=== PATIENT | female | born 1960 | race Caucasian/White ===

== ENCOUNTER → 2021-04-08 01:08 | Outpatient (CLI) | payer OTHER, SELFPAY ==
[2021-04-08 23:33] LABS: SARS-CoV-2 RNA PCR Negative
== END ==
PROVIDERS: PCP Family Medicine; Visit Provider Internal Medicine Gastroenterology
DX: Z01.812 Encounter for preprocedural laboratory examination (principal); Z20.822 Contact with and (suspected) exposure to COVID-19
CPT/HCPCS: C9803; U0003; U0005

== ENCOUNTER 2021-04-11 02:35 | Day surgery (SDC) | payer OTHER, SELFPAY ==
[2021-03-30 12:44] VITALS: BMI 40.2
--- NOTE | 2021-04-08 17:30 | WPDANESEPP ---
Anes - Eval Pre Procedure Procedure: Operation Date: 04/11/21 11:00 Proposed Procedures p Esophagogastroduodenoscopy - Saleem Rojo MD Date/Time: 04/08/21 17:30 Pre Op Diagnosis: dysphagia Patient Data Age: 60 Gender: F Height: 1.57 m Weight: 99.8 kg Allergies Allergy/AdvReac Type Severity Reaction Status Date / Time codeine Allergy PRURITIS Verified 03/30/21 14:00 levofloxacin [From Levaquin] Allergy Swelling Verified 03/30/21 14:00 Home Medications Medication Instructions Recorded Confirmed Type acetaminophen-codeine 300 tablet PO BID PRN 03/30/21 03/30/21 History buspirone 10 mg PO BID 03/30/21 03/30/21 History cimetidine 400 mg PO BID 03/30/21 03/30/21 History ergocalciferol (vitamin D2) 1,250 mcg PO WEEKLY 03/30/21 03/30/21 History fluticasone propionate 50 mcg INTRANASAL DAILY PRN 03/30/21 03/30/21 History metoprolol succinate 100 mg PO HS 03/30/21 03/30/21 History nystatin 100,000 unit TOPICAL DAILY 03/30/21 03/30/21 History omeprazole 40 mg PO BID 03/30/21 03/30/21 History triamcinolone acetonide 0.1 applic TOPICAL DAILY 03/30/21 03/30/21 History venlafaxine 150 mg PO QAM 03/30/21 03/30/21 History Patient hx anesthesia problems: other (emotional after anesthesia) Family hx anesthesia problems: none PMFSH Past Medical History Medical History (Updated 04/08/21 @ 17:31 by Jomar Araya DO) Anxiety Depression Migraine Surgical History Surgical History (Updated 04/08/21 @ 17:31 by Jomar Araya DO) History of History of hysterectomy History of tonsillectomy History of tubal ligation Social History Social History Years smoked: 15 Smoking status: Former smoker Tobacco type: cigarettes Alcohol intake: never Drinks per week: 0 Substance use: never Substance use type: does not use Gender identity (if verbalized by the patient): Female Spiritual care concerns: No Exam Day of Procedure 04/08/21 17:30
--- NOTE | 2021-04-11 07:12 | PM.HPGS ---
History of Present Illness History of Present Illness Consent: Risks, benefits, and alternatives have been discussed and questions answered. Patient agrees to proceed with procedure. Chief complaint: dysphagia Narrative: Zenobia Nickerson is a 60 year old female With dysphagia. Review of Systems Review of Systems: All systems reviewed & are unremarkable except as noted in HPI and below PMFSH Past Medical History Medical History Anxiety Depression Migraine Surgical History Surgical History History of History of hysterectomy History of tonsillectomy History of tubal ligation Social History Social History Years smoked: 15 Smoking status: Former smoker Tobacco type: cigarettes Alcohol intake: never Drinks per week: 0 Substance use: never Substance use type: does not use Living arrangements: with family Gender identity (if verbalized by the patient): Female Spiritual care concerns: No Meds Home Medications and Allergies Home Medications Medication Instructions Recorded Confirmed Type acetaminophen-codeine 300 tablet PO BID PRN 03/30/21 03/30/21 History buspirone 10 mg PO BID 03/30/21 03/30/21 History cimetidine 400 mg PO BID 03/30/21 03/30/21 History ergocalciferol (vitamin D2) 1,250 mcg PO WEEKLY 03/30/21 03/30/21 History fluticasone propionate 50 mcg INTRANASAL DAILY PRN 03/30/21 03/30/21 History metoprolol succinate 100 mg PO HS 03/30/21 03/30/21 History nystatin 100,000 unit TOPICAL DAILY 03/30/21 03/30/21 History omeprazole 40 mg PO BID 03/30/21 03/30/21 History triamcinolone acetonide 0.1 applic TOPICAL DAILY 03/30/21 03/30/21 History venlafaxine 150 mg PO QAM 03/30/21 03/30/21 History Allergies Allergy/AdvReac Type Severity Reaction Status Date / Time codeine Allergy PRURITIS Verified 03/30/21 14:00 levofloxacin [From Levaquin] Allergy Swelling Verified 03/30/21 14:00 Exam Const: General: alert Orientation/consciousness: patient oriented x3 Resp: Auscultation: clear to auscultation bilaterally Cardio: Rhythm: regular rhythm GI: GI Palp: Yes Soft to palpation and No Tenderness to palpation present (GI) Neuro: General: patient oriented x3 Assessment and Plan Assessment and plan (1) Dysphagia: Code(s): R13.10 - Dysphagia, unspecified Status: Acute Assessment and Plan: EGD with possible biopsy or dilatation or cautery.
[2021-04-11 10:07] VITALS: BP 128/80; PULSE 64; RESP 16; TEMP 35.6; O2SAT 99; BMI 40.0
--- NOTE | 2021-04-11 10:09 | WPDANESEFPP ---
Anes - Eval Final PreProcedure Day of Procedure 04/11/21 10:09 Patient weight: morbidly obese Heart: regular rate and rhythm Lungs: clear to auscultation Airway: Mallampati scale class II Neurological: alert and oriented Last oral intake: >/= 8 hours ASA classification: III Emergent: no Anesthetic plan: proceed Anesthesia type and monitoring: general GIVS and standard monitoring Informed Consent: The patient's anesthetic plan and its attendant risks and benefits were discussed with the patient/family/POA. Questions were solicited and answers provided to the satisfaction of the patient/family/POA.
[2021-04-11] MEDS: LACTATED RINGERS 1,000 ML 150 ML IV CONT (10:23)
[2021-04-11] MEDS: BENZOCAINE (*SP) 60 ML SPRAY CAN (HURRICAINE) 1 SPRAY MUCOUS MEM (10:31)
[2021-04-11 10:45] VITALS: BP 117/59; PULSE 70; RESP 18; O2SAT 99
[2021-04-11 10:55] VITALS: BP 108/78; PULSE 59; RESP 20; O2SAT 100
[2021-04-11 11:05] VITALS: BP 123/72; PULSE 58; RESP 20; O2SAT 100
== END 2021-04-11 11:20 | disposition home or self-care (01) ==
PROVIDERS: PCP Family Medicine; Visit Provider Internal Medicine Gastroenterology
PROC: 0DJ08ZZ Inspection of Upper Intestinal Tract, Via Natural or Artificial Opening Endoscopic (ICD-10-PCS; CPT 43235; principal; 2021-04-11 11:00)
DX: R13.14 Dysphagia, pharyngoesophageal phase (principal); K21.9 Gastro-esophageal reflux disease without esophagitis; K31.84 Gastroparesis; E66.01 Morbid (severe) obesity due to excess calories; Z68.41 Body mass index [BMI] 40.0-44.9, adult; F41.8 Other specified anxiety disorders; Z87.891 Personal history of nicotine dependence
CPT/HCPCS: 43239; 87081; J2704; J7120

== ENCOUNTER 2021-05-11 09:34 | Outpatient (CLI) | payer OTHER, SELFPAY ==
--- NOTE | ~2021-05-11 | NM_ITS ---
EXAM: NM gastric emptying study DATE: 05/11/2021 15:18 INDICATION: Foreign body in stomach, initial encounter. TECHNIQUE: A gastric emptying study was performed using the methodology of Estefany BRYSON, et al. J Nucl Med 2007; 48:568-572. The patient was given a meal consisting of 2 scrambled eggs labeled with 0.979 mCi Tc-99m sulfur colloid, 2 slices of toast, two packages of jam, and approximately 120 mL of water . Simultaneous anterior and posterior 1-min images of the abdomen were obtained with the patient supi ne at multiple time points over a total period of 4 hours. The geometric mean of anterior and posteri or views was determined, and the percentage retention was calculated for each time point. COMPARISON: None. FINDINGS: Gastric retention of the radiotracer-labeled meal was 49%, 27%, and 1% at the 1-hour, 2-ho ur, and 4-hour time points, respectively. With this technique, apparent rapid gastric emptying is sug gested by <30% gastric retention at 1 hour. Delayed gastric emptying is defined by gastric retention of >90% at 1 hour, >60% retention at 2 hours, or >10% retention at 4 hours. IMPRESSION: 1. Normal gastric emptying. Reviewed, dictated and finalized at location A. IMPRESSION: 1. Normal gastric emptying.
== END 2021-05-11 09:35 | disposition home or self-care (01) ==
LOC: ANHIMG 09:39
PROVIDERS: PCP Family Medicine; Visit Provider Internal Medicine Gastroenterology
DX: T18.2XXA Foreign body in stomach, initial encounter (principal)
CPT/HCPCS: 78264; A9541

== ENCOUNTER 2021-12-12 14:57 | Outpatient (CLI) | payer OTHER, SELFPAY ==
--- NOTE | ~2021-12-12 | CT_ITS ---
EXAMINATION: CT sinus wo con DATE: 12/12/2021 15:12 INDICATION: Midline facial pressure. Hypertrophy of nasal turbinates. TECHNIQUE: Computed tomography (CT) of the paranasal sinuses was performed without intravenous contra st. Iterative reconstruction technique was employed. The dose-length product was 262.80 mGy-cm. COMPARISON: None FINDINGS: The frontal sinuses are hypoplastic. There is mild mucosal thickening in the maxillary sinu ses. The ethmoid and sphenoid sinuses are clear. There is leftward deviation of the nasal septum. The re are bilateral Chele cells. The ostiomeatal units are patent. There is pneumatization of the verti natalya lamina of right middle turbinate. IMPRESSION: 1. Mild mucosal thickening in the maxillary sinuses. 2. Leftward deviation of the nasal septum. Reviewed, dictated and finalized at location A.
== END 2021-12-12 14:58 | disposition home or self-care (01) ==
LOC: ANHIMG 15:00
PROVIDERS: PCP Family Medicine; Visit Provider Otolaryngology
DX: J32.9 Chronic sinusitis, unspecified (principal); J34.2 Deviated nasal septum; J34.3 Hypertrophy of nasal turbinates; J34.89 Other specified disorders of nose and nasal sinuses; R09.81 Nasal congestion; R09.82 Postnasal drip; R51.9 Headache, unspecified
CPT/HCPCS: 70486

== ENCOUNTER 2023-07-11 18:32 | Emergency (ER) | payer OTHER, SELFPAY ==
--- NOTE | ~2023-07-11 | XR_ITS ---
EXAMINATION: XR knee LT min 4V DATE: 07/11/2023 19:49 INDICATION: Left knee pain. TECHNIQUE: 4 views of left knee were obtained. COMPARISON: None. FINDINGS: Bone alignment is normal. No fracture. There is mild tricompartmental osteoarthritis. No kn ee joint effusion. IMPRESSION: 1. Mild left knee osteoarthritis. Reviewed, dictated and finalized at location E. 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
--- NOTE | ~2023-07-11 | CT_ITS ---
EXAMINATION:CT diagnostic chest wo con DATE: 07/11/2023 20:48 INDICATION: Chest pain. Fall. TECHNIQUE: Computed tomography (CT) of the chest was performed without intravenous contrast. Automate d exposure control and iterative reconstruction technique were employed. The dose-length product (DLP ) was 582.63 mGy-cm. COMPARISON: None. FINDINGS: Calcified pulmonary nodules and calcified left hilar and mediastinal lymph nodes are consis tent with old granulomatous disease. No pleural effusion. There is a 5 mm cyst in the liver. There is mild thoracic spondylosis. IMPRESSION: 1. No posttraumatic findings. Reviewed, dictated and finalized at location E. 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
[2023-07-11 18:41] VITALS: BP 105/79; PULSE 65; RESP 20; TEMP 36.2; O2SAT 99
--- NOTE | 2023-07-11 20:20 | ED.GENADULT ---
HPI - General Adult General Chief complaint: Fall Stated complaint: GLF Time Seen by Provider: 07/11/23 19:44 Source: patient Mode of arrival: ambulatory Limitations: no limitations History of Present Illness HPI narrative: This is a 62-year-old female who presents to the ED with chief complaint of a fall that occurred in the hospital. She was here for her 's surgery. She states that she was walking through the english when her croc got stuck on the floor and caused her to fall forward. She reports she landed on her bilateral breasts and left knee. She reports bruising to the left knee and pain to the right lower chest wall. Denies head injury or loss of consciousness. Denies any further site of pain or injury. Denies numbness, weakness or problems with ambulation. Related Data Home Medications Medication Instructions Recorded Confirmed acetaminophen 300 mg-codeine 30 mg 300 tablet PO BID PRN Migraine 03/30/21 02/12/23 tablet Headache buspirone 10 mg tablet 10 mg PO BID 03/30/21 02/12/23 ergocalciferol (vitamin D2) 1,250 1,250 mcg PO WEEKLY 03/30/21 02/12/23 mcg (50,000 unit) capsule metoprolol succinate 100 mg 100 mg PO HS 03/30/21 02/12/23 tablet,extended release 24 hr nystatin 100,000 unit/gram topical 100,000 unit topical DAILY 03/30/21 02/12/23 cream omeprazole 40 mg capsule,delayed 40 mg PO BID 03/30/21 02/12/23 release atorvastatin 40 mg tablet 40 mg PO DAILY 11/07/21 02/12/23 aspirin 81 mg tablet,delayed 81 mg PO DAILY 02/12/23 02/12/23 release (Adult Low Dose Aspirin) escitalopram oxalate 20 mg tablet 20 mg PO DAILY 02/12/23 02/12/23 (Lexapro) Allergies Allergy/AdvReac Type Severity Reaction Status Date / Time codeine Allergy Intermediate PRURITIS Verified 02/12/23 15:03 levofloxacin [From Levaquin] Allergy Swelling Verified 02/12/23 14:59 Review of Systems Review of Systems: All systems as dictated in [facility] Past Medical History Medical History (Updated 07/11/23 @ 21:12 by Lawrence Delarosa PA-C) Anxiety Depression GERD (gastroesophageal reflux disease) Hyperlipidemia Left ovarian cyst Migraine Surgical History Surgical History History of arthroscopic surgery of shoulder left shoulder History of History of hysterectomy (2008) History of tonsillectomy adenoidectomy History of tubal ligation S/P arthroscopic surgery of right knee Family History Family History (Updated 02/12/23 @ 15:09 by BEATRICE Sanchez) Father Heart disease Mother Alzheimer disease Coronary arteriosclerosis Sibling Diabetes mellitus brother Heart disease brother Cerebrovascular accident sibling Social History Social History Years smoked: 15 Smoking status: Former smoker Tobacco type: cigarettes Alcohol intake: never Drinks per week: 0 Substance use: never Substance use type: does not use Lack of Transportation: No Lack of Food: Never True Current Housing: I Have Housing Concerned About Future Housing: No Difficulty Paying Gas/Electric Bills: No Difficulty Paying for Meds: No Currently Unemployed: No Education: High School Diploma/GED Difficulty w/ Childcare or Family Care: No Living arrangements: with family Occupation/Education: occupation Gender identity (if verbalized by the patient): Female Sexual Orientation (if Verbalized by the Patient): Straight or Heterosexual Spiritual care concerns: No Exam Narrative: GENERAL: Well-appearing, well-nourished, and in no acute distress. HEAD: Normocephalic, atraumatic. EYES: PERRLA and EOMI. ENT: Nares clear, no rhinorrhea or epistaxis. Mucous membranes moist. Oropharynx without tonsillar hypertrophy exudate or other lesions. NECK: Supple. No adenopathy or masses. CHEST: No respiratory distress. Clear to auscultation. No wheezes rale
[2023-07-11] MEDS: ACETAMINOPHEN 325 MG TABLET 650 MG PO (20:34)
[2023-07-11] MEDS: KETOROLAC 30 MG/ML VIAL (*BKC) IM (20:34)
== END 2023-07-11 21:39 | disposition home or self-care (01) ==
PROVIDERS: Emergency Provider Physician Assistant; PCP Family Medicine
DX: S80.02XA Contusion of left knee, initial encounter (principal); S20.02XA Contusion of left breast, initial encounter; E78.5 Hyperlipidemia, unspecified; K21.9 Gastro-esophageal reflux disease without esophagitis; F41.9 Anxiety disorder, unspecified; F32.A Depression, unspecified; Z87.891 Personal history of nicotine dependence; Z90.710 Acquired absence of both cervix and uterus; Z79.82 Long term (current) use of aspirin; W01.0XXA Fall on same level from slipping, tripping and stumbling without subsequent striking against object, initial encounter
CPT/HCPCS: 71250; 73564; 96372; 99284; A9270; J1885

== ENCOUNTER 2023-07-14 19:24 | Emergency (ER) | payer OTHER, SELFPAY ==
--- NOTE | ~2023-07-14 | XR_ITS ---
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 RESULT: Lines, tubes, and devices: None. Lungs and pleura: Clear. Cardiomediastinal silhouette: Stable. Other: No acute osseous or upper abdominal finding. IMPRESSION: No acute cardiopulmonary process. Reviewed, dictated and finalized at location K. ROAD CAR CLEANER
[2023-07-14 19:26] VITALS: BP 141/107; PULSE 58; RESP 18; TEMP 36.3; O2SAT 100
[2023-07-14 19:57] VITALS: BP 147/75; PULSE 56; RESP 18; O2SAT 100
[2023-07-14 20:00] VITALS: RESP 17; O2SAT 100
--- NOTE | 2023-07-14 20:15 | ED.GENADULT ---
HPI - General Adult General Chief complaint: Unspecified Stated complaint: rib pain-fall sunday Time Seen by Provider: 07/14/23 19:55 Source: patient and old records reviewed Mode of arrival: ambulatory Limitations: no limitations History of Present Illness HPI narrative: Patient is a 62-year-old female who presents to ED with reports of R rib pain. Patient reports she was here in the hospital w/ her having surgery last Sunday when she had a ground level fall, landing forward onto her chest. She was seen in the ED afterwards and had a negative CT scan of her chest. Diagnosed with a rib contusion. She was prescribed an incentive spirometer and Kimball. Patient has been taking this as prescribed with intermittent ibuprofen use, but denies improvement. Last Tylenol at 2:30 p.m. Last took ibuprofen last night. Pain worse with movement and deep breaths. She denies any further injury. Denies difficulty breathing or feeling short of breath. Denies abdominal pain, nausea, vomiting, fevers. Related Data Home Medications Medication Instructions Recorded Confirmed acetaminophen 300 mg-codeine 30 mg 300 tablet PO BID PRN Migraine 03/30/21 02/12/23 tablet Headache buspirone 10 mg tablet 10 mg PO BID 03/30/21 02/12/23 ergocalciferol (vitamin D2) 1,250 1,250 mcg PO WEEKLY 03/30/21 02/12/23 mcg (50,000 unit) capsule metoprolol succinate 100 mg 100 mg PO HS 03/30/21 02/12/23 tablet,extended release 24 hr nystatin 100,000 unit/gram topical 100,000 unit topical DAILY 03/30/21 02/12/23 cream omeprazole 40 mg capsule,delayed 40 mg PO BID 03/30/21 02/12/23 release atorvastatin 40 mg tablet 40 mg PO DAILY 11/07/21 02/12/23 aspirin 81 mg tablet,delayed 81 mg PO DAILY 02/12/23 02/12/23 release (Adult Low Dose Aspirin) escitalopram oxalate 20 mg tablet 20 mg PO DAILY 02/12/23 02/12/23 (Lexapro) Allergies Allergy/AdvReac Type Severity Reaction Status Date / Time codeine Allergy Intermediate PRURITIS Verified 07/14/23 19:59 levofloxacin [From Levaquin] Allergy Swelling Verified 07/14/23 19:59 Review of Systems Review of Systems: CONSTITUTIONAL: Denies fever, chills, or sweats. CARDIOVASCULAR: Denies chest pain. RESPIRATORY: See HPI. GASTROINTESTINAL: Denies abdominal pain, nausea, vomiting. MUSCULOSKELETAL: See HPI. NEUROLOGIC: Denies headache, numbness, or weakness. All systems reviewed & are unremarkable except as noted in HPI and below PMFSH Past Medical History Medical History Anxiety Depression GERD (gastroesophageal reflux disease) Hyperlipidemia Left ovarian cyst Migraine Surgical History Surgical History History of arthroscopic surgery of shoulder left shoulder History of History of hysterectomy (2008) History of tonsillectomy adenoidectomy History of tubal ligation S/P arthroscopic surgery of right knee Family History Family History Father Heart disease Mother Alzheimer disease Coronary arteriosclerosis Sibling Diabetes mellitus brother Heart disease brother Cerebrovascular accident sibling Social History Social History Years smoked: 15 Smoking status: Former smoker Tobacco type: cigarettes Alcohol intake: never Drinks per week: 0 Substance use: never Substance use type: does not use Lack of Transportation: No Lack of Food: Never True Current Housing: I Have Housing Concerned About Future Housing: No Difficulty Paying Gas/Electric Bills: No Difficulty Paying for Meds: No Currently Unemployed: No Education: High School Diploma/GED Difficulty w/ Childcare or Family Care: No Living arrangements: with family Occupation/Education: occupation Gender identity (if verbali
[2023-07-14] MEDS: KETOROLAC 30 MG/ML VIAL (*BKC) IM (20:29)
== END 2023-07-14 21:20 | disposition home or self-care (01) ==
PROVIDERS: Emergency Provider Physician Assistant; PCP Family Medicine
DX: S20.02XA Contusion of left breast, initial encounter (principal); S20.213A Contusion of bilateral front wall of thorax, initial encounter; E78.5 Hyperlipidemia, unspecified; K21.9 Gastro-esophageal reflux disease without esophagitis; F32.A Depression, unspecified; F41.9 Anxiety disorder, unspecified; Z87.891 Personal history of nicotine dependence; Z79.82 Long term (current) use of aspirin; W18.30XA Fall on same level, unspecified, initial encounter
CPT/HCPCS: 71046; 96372; 99283; J1885

== ENCOUNTER 2023-12-18 09:00 | Outpatient (CLI) | payer MEDICARE, MEDICAID, SELFPAY ==
--- NOTE | ~2023-12-18 | US_ITS ---
US arterial ankle brachial ind INDICATION: Peripheral vascular disease. Numbness, pain and tingling in the lower extremities. TECHNIQUE: Segmental pressures and plethysmographic and Doppler waveforms of the brachial and lower e xtremity arteries were obtained. COMPARISON: None. FINDINGS: Right and left brachial artery pressures of 126 mm Hg and 126 mm Hg, respectively, are concordant (no rmal difference <= 30 mmHg). The right ankle-brachial index (ERNESTO) is 1.17 (normal >= 0.9-1.0). The right great toe-brachial index (TBI) is 0.44 (normal >= 0.60). The left ERNESTO is 1.1. The left TBI is 0.5. IMPRESSION: 1. Diminished bilateral toe brachial indices, consistent with peripheral arterial disease. Reviewed, dictated and finalized at location B. IMPRESSION: 1. Diminished bilateral toe brachial indices, consistent with peripheral arteri al disease.
== END 2023-12-18 09:01 | disposition home or self-care (01) ==
PROVIDERS: PCP Family Medicine; Visit Provider Family Medicine
DX: I73.9 Peripheral vascular disease, unspecified (principal)
CPT/HCPCS: 93922

== ENCOUNTER 2024-05-13 10:59 | Outpatient (CLI) | payer MEDICARE, SELFPAY ==
[2024-05-13 12:50] LABS: Basophils Absolute Auto 0.1 K/mm3 (0.0-0.1); Eosinophils Absolute Auto 0.1 K/mm3 (0-0.3); Eosinophils Percent Auto 1.8 % (0-4.4); Hematocrit 42.2 % (37.0-47.0); Hemoglobin 13.2 g/dL (12.0-15.0); Immature Granulocyte Absolute 0.02 K/mm3 (0.00-0.031); Immature Granulocyte Percent A 0.3 % (0-0.5); Lymphocytes Absolute Auto 3.62 K/mm3 (0.9-3.2); Mean Corpuscular HGB Conc 31.3 g/dl (32-36); Mean Corpuscular Hemoglobin 29.8 pg (26-34); Mean Corpuscular Volume 95.3 fl (80-100); Mean Platelet Volume 10.3 fl (7.4-10.4); Monocytes Absolute Auto 0.4 K/mm3 (0.1-0.6); Monocytes Percent Auto 5.7 % (2.6-8.5); Neutrophils Absolute Auto 3.4 K/mm3 (1.3-6.7); Neutrophils Percent Auto 44.2 % (45.5-73.1); Platelet Count Result 264 k/mm3 (150-375); Red Blood Count 4.43 M/mm3 (4.2-5.4); Red Cell Distribution Width 13.2 % (11.5-14.5); White Blood Count 7.7 K/mm3 (4.5-10.0)
[2024-05-13 13:57] LABS: Alanine Aminotransferase 23 U/L (6-35); Albumin Level 4.1 g/dL (3.5-5.1); Alkaline Phosphatase 92 U/L (38-126); Anion Gap 6 mmol/L (4-12); Aspartate Amino Transferase 44 U/L (14-36); Bilirubin,Total 0.5 mg/dL (0.2-1.3); Blood Urea Nitrogen 13 mg/dL (7-17); Calcium 8.8 mg/dL (8.4-10.2); Carbon Dioxide 33 mmol/L (22-30); Chloride 99 mmol/L (98-107); Estimated Glomerular Filt Rate 50; Glucose 95 mg/dL (65-110); Potassium 4.6 mmol/L (3.4-5.0); Sodium 138 mmol/L (137-145)
[2024-05-13 14:14] LABS: Hemoglobin A1C 5.8 % (<5.7)
[2024-05-13 14:54] LABS: Folic Acid 3.3 ng/mL (2.76->20)
== END 2024-05-13 11:00 | disposition home or self-care (01) ==
PROVIDERS: PCP Nurse Practitioner; Visit Provider Nurse Practitioner
DX: R20.0 Anesthesia of skin (principal); R20.2 Paresthesia of skin; Z13.29 Encounter for screening for other suspected endocrine disorder; Z13.1 Encounter for screening for diabetes mellitus
CPT/HCPCS: 36415; 80053; 82607; 82746; 83036; 84443; 85025

== ENCOUNTER 2024-05-21 10:19 | Outpatient (CLI) | payer MEDICARE, SELFPAY ==
--- NOTE | ~2024-05-21 | XR_ITS ---
EXAMINATION: XR lumbar spine 2-3V DATE: 05/21/2024 10:34 INDICATION: Low back pain, unspecified. TECHNIQUE: 3 views of lumbar spine including standing views were obtained. COMPARISON: None. FINDINGS: There is 3 degrees levocurvature of lumbar spine. Vertebral body heights are normal. There is mildly decreased disc height at L3-L4 and L4-L5. There is multilevel facet joint osteoarthritis, s evere in lower lumbar spine. IMPRESSION: 1. Mild lumbar spondylosis. Reviewed, dictated and finalized at location A. IMPRESSION: 1. Mild lumbar spondylosis.
== END 2024-05-21 10:20 | disposition home or self-care (01) ==
PROVIDERS: PCP Nurse Practitioner; Visit Provider Nurse Practitioner
DX: M47.896 Other spondylosis, lumbar region (principal)
CPT/HCPCS: 72100

== ENCOUNTER 2024-07-28 10:37 | Outpatient (CLI) | payer MEDICARE, SELFPAY ==
--- NOTE | 2024-07-28 11:30 | NEURO_ITS ---
Impression: # Complains of numbness of feet. 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 # Abnormal needle/EMG exam with neurogenic changes. Nerve Conduction Studies Anti Sensory Summary Table Stim Site NR Peak (ms) P-T Amp (?V) Site1 Site2 Delta-P (ms) Dist (cm) Marquise (m/s) Left Sup Fibular Anti Sensory (Ant Lat Mall) NO RESPONSE 14 cm NR 14 cm Ant Lat Mall 16.0 Right Sup Fibular Anti Sensory (Ant Lat Mall) NO RESPONSE 14 cm NR 14 cm Ant Lat Mall 16.0 Left Sural Anti Sensory (Lat Mall) NO RESPONSE Calf NR Calf Lat Mall 16.0 Right Sural Anti Sensory (Lat Mall) NO RESPONSE Calf NR Calf Lat Mall 16.0 Motor Summary Table Stim Site NR Onset (ms) O-P Amp (mV) Site1 Site2 Delta-0 (ms) Dist (cm) Marquise (m/s) Left Peroneal Motor (Vastus Med) NO RESPONSE Ankle NR Popit Ankle 0.0 Popit NR Right Peroneal Motor (Vastus Med) NO RESPONSE Ankle NR Popit Ankle 0.0 Popit NR Left Tibial Motor (Abd Rodriguez Brev) Ankle 5.1 0.2 Knee Ankle 12.4 41.0 33 Knee 17.5 0.2 Right Tibial Motor (Abd Rodriguez Brev) Ankle 5.1 0.9 Knee Ankle 10.4 36.0 35 Knee 15.5 0.9 F Wave Studies NR F-Lat (ms) L-R F-Lat (ms) Left Peroneal (Mrkrs) (EDB) DISPERSED RESPONSE NR Right Peroneal (Mrkrs) (EDB) NO RESPONSE NR Left Tibial (Mrkrs) (Abd Hallucis) NO RESPONSE NR Right Tibial (Mrkrs) (Abd Hallucis) DISPERSED RESPONSE NR EMG Side Muscle Nerve Root Ins Act Fibs Amp Dur Recrt Comment Right AntTibialis Dp Br Fibular L4-5 Nml Nml Decr >12ms +1 Right Gastroc Tibial S1-2 Nml Nml Decr >12ms +1 Right Fibularis Long Sup Br Fibular L5-S1 Nml Nml Decr >12ms +1 Right Ext Dig Brev Dp Br Fibular L5, S1 Nml Nml Decr >12ms +3 Right QuadratusFem QuadFemoris L4-5, S1 Nml Nml Nml Nml Nml Right Flex Dig Long Tibial L5-S2 Nml Nml Decr >12ms +1 Left AntTibialis Dp Br Fibular L4-5 Nml Nml Decr >12ms +1 Left Gastroc Tibial S1-2 Nml Nml Decr >12ms +1 Left Fibularis Long Sup Br Fibular L5-S1 Nml Nml Decr >12ms +1 Left Flex Dig Long Tibial L5-S2 Nml Nml Decr >12ms +1 Left Ext Dig Brev Dp Br Fibular L5, S1 Nml Nml Decr >12ms +3 Left QuadratusFem QuadFemoris L4-5, S1 Nml Nml Nml Nml Nml MTDD
== END 2024-07-28 10:38 | disposition home or self-care (01) ==
PROVIDERS: PCP Nurse Practitioner; Visit Provider Nurse Practitioner
DX: G62.9 Polyneuropathy, unspecified (principal); R20.0 Anesthesia of skin; R20.2 Paresthesia of skin
CPT/HCPCS: 95886; 95910

== ENCOUNTER 2024-12-29 09:56 | Outpatient (CLI) | payer MEDICARE, SELFPAY ==
--- NOTE | ~2024-12-29 | XR_ITS ---
XR knee RT 3V Ordering provider: Renee Russell NP History: . M25.569 - Pain in unspecified knee . Comparison: None. FINDINGS: BONES: No acute fracture or dislocation. JOINT SPACES: Narrowing of the medial compartment. SOFT TISSUES: Normal. IMPRESSION: No acute osseous abnormality right knee. Mild to moderate osteoarthritic changes. Reviewed, dictated and finalized at location A.
== END 2024-12-29 09:57 | disposition home or self-care (01) ==
LOC: GOSHIMG 09:57
PROVIDERS: PCP Nurse Practitioner; Visit Provider Nurse Practitioner
DX: M17.11 Unilateral primary osteoarthritis, right knee (principal)
CPT/HCPCS: 73562

== ENCOUNTER 2025-01-20 12:17 | Outpatient (CLI) | payer MEDICARE, SELFPAY ==
--- OUTSIDE RECORDS SUMMARY | 2025-01-20 12:21 | XMS_ITS | Clinical Summary ---
Author Organization [facility] Address [address] [place] [address] Care Team Providers Care Machine Baster Name Role Phone Cindi Vicente MD Primary Care Provider + Allergies Active Allergy Reactions Criticality Noted Date Comments Levofloxacin Itching Low 11/15/2021 Medications metoprolol XL (TOPROL-XL) 100 mg 24 hr tablet Take 100 mg by mouth daily Active busPIRone (BUSPAR) 10 mg tabletIndicatio ns:Generalized Anxiety Disorder Take 10 mg by mouth 2 (two) times a day Active venlafaxine 150 mg tablet extended release 24hr 24 hr tablet Take 150 mg by mouth daily Active cholecalciferol (VITAMIN D-3) 50,000 unit capsule Take 50,000 Units by mouth once a week Active cimetidine (TAGAMET) 400 mg tablet Take 400 mg by mouth 2 (two) times a day Active atorvastatin (LIPITOR) 40 mg tablet Take 40 mg by mouth daily Active aspirin 81 mg chewable tablet Take 81 mg by mouth daily Active montelukast (SINGULAIR) 10 mg tablet Take 10 mg by mouth nightly Active sucralfate (CARAFATE) 1 gram tablet Take 1 g by mouth 4 (four) times a day Active fexofenadine (WILLIAMS) 180 mg tablet Take 180 mg by mouth daily Active fluticasone (VERAMYST) 27.5 mcg/actuation nasal sprayIndication s:Allergic Rhinitis Administer 2 sprays into each nostril daily Active azelastine (ASTELIN) 137 mcg (0.1 %) nasal spray Administer 1 spray into each nostril 2 (two) times a day Use in each nostril as directed Active albuterol HFA (PROVENTIL HFA,VENTOLIN HFA,PROAIR HFA) 90 mcg/actuation inhaler Inhale 2 puffs Active phentermine (ADIPEX-P) 37.5 mg tablet daily Active omeprazole (PriLOSEC) 40 mg capsule omeprazole 40 mg capsule,delayed release Active escitalopram (LEXAPRO) 20 mg tablet escitalopram 20 mg tablet Active meclizine (ANTIVERT) 25 mg tablet meclizine 25 mg tablet Active Active Problems No known active problems Surgical History Surgery Date Site/Laterality Comments SECTION HYSTERECTOMY TONSILLECTOMY TUBAL LIGATION KNEE ARTHROSCOPY Right SHOULDER ARTHROSCOPY Medical History Medical History Date Comments GERD (gastroesophageal reflux disease) Dysphagia Depression Social History Tobacco Use Types Packs/Day Years Used Date Smoking Tobacco: Former Personal Safety Answer Date Recorded Getting School Help Needed Not on file 11/11 Comments Unknown Sex and Gender Information Value Date Recorded Sex Assigned at Not on file Legal Sex Female 7:21 AM CDT Gender Identity Not on file Sexual Orientation Not on file Obstetrics History Last Filed Vital Signs Vital Sign Reading Time Taken Comments Blood Pressure 112/72 03/21/2022 1:48 PM CDT Pulse 57 03/21/2022 1:48 PM CDT Temperature - - Respiratory Rate 16 03/21/2022 1:48 PM CDT Oxygen Saturation - - Inhaled Oxygen Concentration - - Weight 105 kg (231 lb 9.5 oz) 03/21/2022 1:48 PM CDT Height 157.5 cm (5' 2 ) 03/21/2022 1:48 PM CDT Body Mass Index 42.36 03/21/2022 1:48 PM CDT Plan of Treatment Health Maintenance Due Date Last Done Comments Breast Cancer Screening-Mammogram 1958 Colon Cancer Screening-Colonoscopy 1958 Depression Screening 1958 Fall Risk Assessment 1958 Hepatitis C Screening 1958 Osteoporosis Screening-Bone Density Scan 1958 DTaP/Tdap/Td Vaccine (1 - Tdap) 1969 Hepatitis B Screening 1976 Pneumococcal vaccine 65+ (1 of 1 - PCV) 2008 Zoster Vaccine (1 of 2) 2008 Well Visit 65+ 11/11/2023 Influenza Vaccine (Season Ended) [address] [place] [address] [facility] [place] [address] Care Teams Machine Baster Relationship Specialty Start Date End Date Cindi Vicente MD [address] [place] [address] [place] [address] PCP - General Family Medicine 02/01/22
--- OUTSIDE RECORDS SUMMARY | 2025-01-20 12:21 | XMS_ITS | Referral Summary ---
Author Organization [facility] Address [address] [place] [address] Care Team Providers Care Software Implementation Project Manager Name Role Phone Cindi Vicente MD Primary [...] Active Active Problems No known active problems Social History Tobacco Use Types Packs/Day Years Used Date Smoking Tobacco: Former Personal Safety Answer Date Recorded Getting School Help Needed Not on file 11/11 Comments Unknown Sex and Gender Information Value Date Recorded Sex Assigned at Not on file Legal Sex Female 7:21 AM CDT Gender Identity Not on file Sexual Orientation Not on file Last Filed Vital Signs Vital Sign Reading [...] 03/21/2022 1:48 PM CDT Plan of Treatment Not on file Insurance [facility] [place] [address] Care Teams Software Implementation Project Manager Relationship Specialty Start Date End Date Cindi Vicente MD [address] [place] [address] [address] PCP - General Family Medicine 02/01/22
--- OUTSIDE RECORDS SUMMARY | 2025-01-20 12:21 | XMS_ITS | CONTINUITY OF CARE DOCUMENT ---
Author Name maryjane deejayreji Address Unknown Organization [facility] Address [address] [place] [address] Phone [phone] Care Team Providers Care Rescue Instructor Name Role Phone Jordon Masters MD Unavailable DAVE TIM MD Unavailable VICTOR MANUEL GARCIA DO Unavailable [phone] PROBLEMS Condition Status Date Provider Notes Cardiology examination active Jordon sanchez MD Abnormal EKG active Jordon Masters MD Migraines active Jordon Masters MD Elevated Lipoprotein(a) active Jordon Louise ra, MD Leg pain, bilateral completed - Edward ana Masters MD Leg pain - nml AIF 03/2024 active Jordon fry MD Former smoker active Jordon Masters MD Neuropathy, peripheral active Jordon sanchez MD ENCOUNTERS Date Type Provider Location Encounter Diag nosis - In-person encounter Office Visit Jordon Masters MD [facility] Neuropathy, peripheral - In-person encounter Office Visit Jordon Masters MD [facility] Leg pain, bilateralLeg pain - nml AIF 03/2024 - In-person encounter Office Visit Jordon Masters MD [facility] Leg pain - nml AIF 03/2024Former smoker - In-person encounter Office Visit Jordon Masters MD [facility] Elevated Lipoprotein(a) - In-person encounter Office Visit Jordon Masters MD [facility] Cardiology examinationAbnormal EKGMigraines VITAL SIGNS Date Observation Value Provider Body Mass Index (Ratio) 40.05 kg/m2 Riri Masters MD blood pressure, diastolic 81 mm[Hg] Zoë suarez Ravi blood pressure, systolic 111 mm[Hg] Georgie peres Ravi oxygen saturation, oximetry 97 % Carmen Ravi pulse rate 63 /min Carmen Ravi respiratory rate E&M 14 /min Carmen Ravi weight E&M 219 [lb_av] Carmen Ravi height E&M 62 [in_i] Carmen Ravi blood pressure, cuff size regular Zoë suarez Ravi Body Mass Index (Ratio) 40.42 kg/m2 [place] b Mgt blood pressure, cuff size large Ke rri Gruenenfnyla blood pressure, diastolic 60 mm[Hg] Ke rri Gruenenfeldoliva blood pressure, systolic 106 mm[Hg] Ker ri Eugenenenfnyla oxygen saturation, oximetry 94 % Saray Gruenenfeldoliva respiratory rate E&M 12 /min Saray G ruenenfelder pulse rate 63 /min Saray Gruenenfe lder weight E&M 221 [lb_av] Saray Gruenenfe lder height E&M 62 [in_i] Saray Gruenenfe lder Body Mass Index (Ratio) 39.50 kg/m2 [place] b Nacht blood pressure, cuff size large Ke rri Gruenenfelder blood pressure, diastolic 80 mm[Hg] Stevenson magdaleoni Gruenenfelder blood pressure, systolic 122 mm[Hg] Nicol ri Grriconfelder oxygen saturation, oximetry 95 % Saray Grannettanenfelder respiratory rate E&M 12 /min Saray Lay ruenenfelder pulse rate 68 /min Saray Grmadisone lder weight E&M 216 [lb_av] Saray Grannettanenfe lder height E&M 62 [in_i] Saray Villae er Body Mass Index (Ratio) 40.97 kg/m2 [place] Nagy blood pressure, diastolic 73 mm[Hg] Delal ayers Potter blood pressure, systolic 108 mm[Hg] Elliott jamaóscar Potter oxygen saturation, oximetry 98 % Shelby Moise pulse rate 72 /min Shelby gallegos weight E&M 224 [lb_av] Shelby gallegos respiratory rate E&M 16 /min Maureen Moise blood pressure, cuff size large Della ayers Moise height E&M 62 [in_i] Shelby gallegos Body Mass Index (Ratio) 41.51 kg/m2 Riri Masters MD blood pressure, diastolic 88 mm[Hg] Yue nkLogdanya blood pressure, systolic 113 mm[Hg] Herminia kLogic blood pressure, diastolic 88 mm[Hg] Sa ra Evans blood pressure, systolic 113 mm[Hg] Tej a Evans oxygen saturation, oximetry 96 % Luciana Evans respiratory rate E&M 18 /min Luciana Si ms pulse rate 67 /min Luciana Evans blood pressure, cuff size regular Sa ra Evans weight E&M 227 [lb_av] Luciana Evans height E&M 62 [in_i] Lucinaa Evans ALLERGIES Allergy Name Onset Date Reaction Criticality Status LEVAQUIN High Criticality active RESULTS Date Observation Value Provider Reference Range Interpretation Location hemoglobin A1C, blood, as % of total hemoglobin 5.7 % OF TOTAL HGB [facility] <5.7 High ferritin, serum 157 ng/mL [facility] 16-288 Normal D-dimer quantitative mcg/mL 0.47 MCG/ML FEU [facility] <0.50 Normal basophils as percent of blood leukocytes 0.4 % [facility] Normal eosinophils as percent of blood leukocytes 1.1 % [facility] Normal monocyte count, blood 5.5 % [facility] Normal lymphocyte count, blood 33.7 % [facility] Normal neutrophils as percent of blood leukocytes 59.3 % [facility] Normal basophils, absolute, manual 40 cells/mcL [facility] 0-200 Normal eosinophils, absolute, manual 109 cells/mcL [facility] 15-500 Normal monocytes, absolute, manual 545 cells/mcL [facility] 200-950 Normal lymphocytes, absolute 3336 CELLS/UL [facility] 850-3900 Normal Absolute Neutrophil count 5871 cells/mcL [facility] 2274-2470 Normal mean platelet volume 9.9 fL [facility] 7.5-12.5 Normal platelet count 318 THOUSAND/UL [facility] 140-400 Normal red blood cell distribution width 13.6 % [facility] 11.0-15.0 Normal mean corpuscular hemoglobin concentration, RBC 31.4 G/DL [facility] 32.0-36.0 Low mean corpuscular hemoglobin, RBC 29.2 pg [facility] 27.0-33.0 Normal mean corpuscular volume, RBC 93.1 fL [facility] 80.0-100.0 Normal hematocrit, blood 44.6 % [facility] 35.0-45.0 Normal hemoglobin electrophoresis, blood 14.0 [facility] 11.7-15.5 Normal erythrocyte (RBC) count 4.79 MILLION/UL [facility] 3.80-5.10 Normal leukocyte (white blood cells) count, blood 9.9 THOUSAND/UL [facility] 3.8-10.8 Normal NT-pro BNP 48 [facility] Normal calcium, serum 9.3 mg/dL [facility] 8.6-10.4 Normal carbon dioxide, venous blood 28 mmol/L [facility] 20-32 Normal chloride, serum 103 mmol/L [facility] 98-110 Normal potassium, serum 4.1 mmol/L [facility] 3.5-5.3 Normal sodium, serum 139 mmol/L [facility] 135-146 Normal urea nitrogen/creatinine ratio, serum NOT APPLICABLE (calc) [facility] 6-22 creatinine, serum 0.96 mg/dL [facility] 0.50-1.05 Normal urea nitrogen, blood 15 mg/dL [facility] 7-25 Normal blood glucose, random 87 mg/dL [facility] 65-99 Normal iron saturation percent, serum 17 % (CALC) [facility] 16-45 Normal iron binding capacity, total 346 MCG/DL (CALC) [facility] 250-450 Normal iron, serum 60 ug/dL [facility] 45-160 Normal C-reactive protein, by highly sensitive test 1.1 mg/L [facility] <1.0 High LDL Size 220.5 Angstrom [facility] >222.9 Low LDL particle concentration (lipoprotein panel), risk categories correspond to NCEP categories for LDL cholesterol (on a percentile equivalent basis) 1446 nmol/L [facility] <1138 High cholesterol, non-HDL, total 106 MG/DL (CALC) [facility] <130 cholesterol/HDL ratio, serum, percent 3.1 calc [facility] <3.6 LDL cholesterol, serum 85 MG/DL (CALC) [facility] <100 triglyceride, serum, fasting 116 mg/dL [facility] <150 HDL cholesterol, serum 50 mg/dL [facility] >49 cholesterol, serum 156 mg/dL [facility] <200 thyroid stimulating hormone, serum 1.85 u[IU]/mL [facility] 0.40-4.50 Normal free thyroxine index 2.3 [facility] 1.4-3.8 Normal thyroxine, serum, total 7.7 ug/dL [facility] 5.1-11.9 Normal triiodothyronine resin uptake 30 % [facility] 22-35 Normal HISTORY OF MEDICATION USE Medication Status Instructions Dates Provider Indications Com ments cilostazol 50 mg tablet completed TAKE 1 TABLET BY MOUTH TWICE DAILY 0 - 5 Jordon Masters MD escitalopram oxalate 20 mg tablet completed - 1 Jordon Masters MD Vitamin D2 1,250 mcg (50,000 unit) capsule active Luciana Evans meclizine 25 mg tablet completed - 1 Jordon Masters MD metoprolol succinate 100 mg tablet extended release 24 hr active TAKE 1 TABLET BY MOUTH EVERY DAY Jordon Masters MD montelukast 10 mg tablet completed - 1 Jordon Masters MD buspirone 10 mg tablet active Take 1 tablet by mouth three times a day Jordon Masters MD omeprazole 40 mg capsule,delayed release(DR/EC) active Take 1 capsule by mouth twice a day Jordon Masters MD atorvastatin 40 mg tablet active TAKE 1 TABLET BY MOUTH EVERY DAY Jordon Masters MD sucralfate 1 gram tablet completed - 1 Jordon Masters MD SOCIAL HISTORY Date Observation Value Provider smoking status Never smoker Jordon sanchez MD smoking status Never smoker Jordon sanchez MD smoking status Never smoker Jordon sanchez MD number of grandchildren Jordon Nagy social history E&M Patient has n ever smoked. Smoking History: Linda riggs has never smoked. Benedicto Nagy social history reviewed E&M revi ewed - no changes required Benedicto Nagy smoking status Never smoker Shelby Conner and social history reviewed E&M revi ewed - no changes required Jordon Masters MD smoking status Never smoker Jordon sanchez MD social history E&M Patient has n ever smoked. Jordon Masters MD INSURANCE PROVIDERS Payer name Policy type / Coverage type [place] red libertarian ID [employer] MEDICARE GOLD ADVANTAGE O Medicare [id number] ADVANCE DIRECTIVES Name Date DISCUSSED - NO DECISION MADE TREATMENT PLAN Date Name Performer [id number],S, Benedicto Nagy [id number],S, H er updated medication list for this problem includes: Metoprolol Succinate 100 Mg Tablet Extended Release 24 Hr (Metoprolol succinate) ..... Take 1 tablet by mouth every day Benedicto Nagy [id number],C,E KG today was abnormal. She is having pain in her right shoulder. She went to the emergency room for pain. They gave her steroid packs, an MRI and told her to follow up with an orthopedic doctor. She has previously been to physical therapy for her shoulder. Today she has SOB. W Ill order echo, chemical stress test, and labs for further evaluation. Jordon Masters MD [id number],C,E KG today was abnormal. W Ill order echo, chemical stress test, and labs for further evaluation. Jordon Masters MD [id number],C,E KG today was abnormal. W Ill order echo, chemical stress test, and labs for further evaluation. Jordon Masters MD [id number],N,Takes BP meds for migraines Jordon Masters MD Cardiology Jordon Gallegos Cardiology Jordon Gallegos Cardiology: H er updated medication list for this problem includes: Atorvastatin 40 Mg Tablet (Atorvastatin) ..... Take 1 tablet by mouth every day Jordon Masters MD Cardiology Jordon Gallegos Cardiology Jordon Gallegos Cardiology Jordon Gallegos Cardiology Jordon Gallegos Cardiology Jordon Gallegos Cardiology Jordon Gallegos Cardiology Jordon Gallegos Cardiology Jordon Gallegos Cardiology: H er updated medication list for this problem includes: Atorvastatin 40 Mg Tablet (Atorvastatin) ..... Take 1 tablet by mouth every day Jordon Masters MD Cardiology Jordon Gallegos Cardiology Benedicto Nagy Cardiology: H er updated medication list for this problem includes: Metoprolol Succinate 100 Mg Tablet Extended Release 24 Hr (Metoprolol succinate) ..... Take 1 tablet by mouth every day Benedicto Nagy Cardiology:EKG today was abnormal. She is having pain in her right shoulder. She went to the emergency room for pain. They gave her steroid packs, an MRI and told her to follow up with an orthopedic doctor. She has previously been to physical therapy for her shoulder. Today she has SOB. W Ill order echo, chemical stress test, and labs for further evaluation. Jordon Masters MD Cardiology:EKG today was abnormal. W Ill order echo, chemical stress test, and labs for further evaluation. Jordon Masters MD Cardiology:EKG today was abnormal. W Ill order echo, chemical stress test, and labs for further evaluation. Jordon Masters MD Cardiology:Takes BP meds for ember kasia Jordon Masters MD Date Name VITAMIN B12/FOLATE, SERUM PANEL PROTHROMBIN TIME WIT H INR LIPID PANEL CBC (INCLUDES DIFF/P LT) BASIC METABOLIC PANE L W/EGFR IRON AND TOTAL IRON BINDING CAPACITY FERRITIN CBC (INCLUDES DIFF/P LT) CardioIQ Advanced Li pid Panel with Inflammation ([facility]) HEMOGLOBIN A1c D-DIMER, QUANTITATIV E BASIC METABOLIC PANE L W/EGFR TSH, free T4, total T3 PROBNP, N TERMINAL Stress Regadenoson Complete Echo HISTORY OF PROCEDURES Procedure Date Procedure Name Provider Procedure Notes S tatus Complex e/m visit add on Jordon Masters MD completed Complex e/m visit add on Jordon Masters MD completed EKG Jordon Masters MD complet ed EKG Jordon Masters MD complet ed
[2025-01-20 13:15] LABS: Basophils Absolute Auto 0.1 K/mm3 (0.0-0.1); Basophils Percent Auto 0.9 % (0.2-1.2); Eosinophils Absolute Auto 0.1 K/mm3 (0-0.3); Eosinophils Percent Auto 1.9 % (0-4.4); Hematocrit 40.2 % (37.0-47.0); Hemoglobin 12.7 g/dL (12.0-15.0); Immature Granulocyte Absolute 0.01 K/mm3 (0.00-0.031); Immature Granulocyte Percent A 0.1 % (0-0.5); Lymphocytes Absolute Auto 1.98 K/mm3 (0.9-3.2); Lymphocytes Percent Auto 29.1 % (18.3-44.2); Mean Corpuscular HGB Conc 31.6 g/dl (32-36); Mean Corpuscular Hemoglobin 29.6 pg (26-34); Mean Corpuscular Volume 93.7 fl (80-100); Mean Platelet Volume 10.1 fl (7.4-10.4); Monocytes Absolute Auto 0.3 K/mm3 (0.1-0.6); Neutrophils Absolute Auto 4.4 K/mm3 (1.3-6.7); Platelet Count Result 245 k/mm3 (150-375); Red Blood Count 4.29 M/mm3 (4.2-5.4); White Blood Count 6.8 K/mm3 (4.5-10.0)
[2025-01-20 13:34] LABS: Alanine Aminotransferase 26 U/L (6-35); Albumin Level 3.6 g/dL (3.5-5.1); Alkaline Phosphatase 91 U/L (38-126); Anion Gap 7 mmol/L (4-12); Aspartate Amino Transferase 31 U/L (14-36); Bilirubin,Total 0.4 mg/dL (0.2-1.3); Blood Urea Nitrogen 8 mg/dL (7-17); Calcium 8.4 mg/dL (8.4-10.2); Carbon Dioxide 28 mmol/L (22-30); Chloride 106 mmol/L (98-107); Estimated Glomerular Filt Rate > 60; Glucose 105 mg/dL (65-110); Potassium 3.9 mmol/L (3.4-5.0); Sodium 141 mmol/L (137-145)
[2025-01-20 13:36] LABS: Rheumatoid Factor < 12.0 IU/ML (<12)
[2025-01-20 14:52] LABS: Hemoglobin A1C 5.6 % (<5.7)
[2025-01-22 12:34] LABS: Homocysteine 13.1 umol/L (< or = 13.4)
[2025-01-22 13:23] LABS: Red Blood Cell Folate 440 ng/mL RBC (>280)
[2025-01-24 00:19] LABS: Methylmalonic Acid 164 nmol/L (69-390); Vitamin B1 10 nmol/L (8-30)
[2025-01-24 14:58] LABS: Vitamin D 1,25 (OH)2 Total 25 pg/mL (18-72); Vitamin D2 1,25 (OH)2 25 pg/mL; Vitamin D3 1,25 (OH)2 <8 pg/mL
== END 2025-01-20 12:18 | disposition home or self-care (01) ==
PROVIDERS: Visit Provider Psychiatry & Neurology Neurology
DX: G62.9 Polyneuropathy, unspecified (principal); Z13.1 Encounter for screening for diabetes mellitus; M54.50 Low back pain, unspecified; G43.909 Migraine, unspecified, not intractable, without status migrainosus; E55.9 Vitamin D deficiency, unspecified
CPT/HCPCS: 36415; 80053; 82607; 82652; 82747; 83036; 83090; 83921; 84207; 84425; 85025; 86038; 86039; 86334; 86430

== ENCOUNTER 2025-03-09 14:04 | Outpatient (CLI) | payer MEDICARE, SELFPAY ==
--- NOTE | ~2025-03-09 | XR_ITS ---
EXAMINATION: BONE SURVEY/METASTATIC SURVEY DATE: 03/09/2025 INDICATION: Plasma cell disorder TECHNIQUE: A skeletal survey was performed including AP views of the chest, abdomen and pelvis; AP an d lateral/lateral swimmers views of the cervical, thoracic and lumbar spine; lateral view of the skul l, and AP and lateral views of the appendicular skeleton excluding the hands and feet. COMPARISON: None. 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 Otherwise mild scattered degenerative skeletal changes throughout the r emainder the axial and appendicular skeleton. No suspicious lytic or blastic bone lesions identified. Lungs are clear with no focal airspace opacities, pulmonary edema, pleural effusion or pneumothorax. Cardiomediastinal silhouette is normal. Normal bowel gas pattern. IMPRESSION: 1. No suspicious lytic or blastic bone lesions to suggest multiple myeloma or other osseous metastati c disease. Reviewed, dictated and finalized at location A. IMPRESSION: 1. No suspicious lytic or blastic bone lesions to suggest multiple myeloma or o ther osseous metastatic disease.
--- OUTSIDE RECORDS SUMMARY | 2025-03-09 14:11 | XMS_ITS | Referral Summary ---
Author Organization [facility] Address [address] [place] [address] Care Team Providers Care Marine Pipe Welder Name Role Phone Cindi Vicente MD Primary [...] 1:48 PM CDT Height 157.5 cm (5' 2) 03/21/2022 1:48 PM CDT Body Mass Index 42.36 03/21/2022 1:48 PM CDT Plan of Treatment Not on file Insurance [facility] [place] [id number] Care Teams Marine Pipe Welder Relationship Specialty Start Date End Date Cindi Vicente MD [address] [place] [address] [address] PCP - General Family Medicine 02/01/22
--- OUTSIDE RECORDS SUMMARY | 2025-03-09 14:11 | XMS_ITS | Data Portability ---
Author Organization [facility] [employer], Main Office Address [address] [place] [address] Assessment No assessment recorded. Plan of Treatment Reminders Order Date Submit Date Provider Last Modified By Organization Details Last Modified Time Details Appointments None recorded. Lab HbA1c (hemoglobin A1c), blood 2023 024 [email or web address] 4 Not available 4 14:15:47 BMP, serum or plasma 2023 024 [email or web address] 4 Not available 4 14:16:04 lipid panel, serum 2023 024 [email or web address] 4 Not available 4 14:16:49 hepatic function panel, serum 2023 024 [email or web address] 4 Not available 4 14:17:08 vitamin D, 25-hydroxy, total, serum 2023 024 4 Not available 4 14:16:25 vitamin B12, serum 2023 024 4 Not available 4 14:14:27 folate, serum 2023 024 [email or web address] 4 Not available 4 14:14:44 CBC w/ auto diff 2023 024 [email or web address] 4 Not available 4 14:15:02 TSH, serum or plasma 2023 024 [email or web address] 4 Not available 4 14:15:20 Referral None recorded. Procedures None recorded. Surgeries None recorded. Imaging None recorded. Medication Orders gabapentin 300 mg capsule 2023 024 [facility], [facility] [place], [address], 4 14:17:03 nystatin 100,000 unit/gram topical cream 2023 024 [facility] [address], [address] [place] [address], [address], 4 10:57:15 hydrocodone 5 mg-acetamin ophen 325 mg tablet 2022 023 [facility] [address], [address] [place] [address], [address], 3 12:01:11 cyclobenzap rine 5 mg tablet 2022 023 [facility] [address], [address] [place] [address], [address], 3 12:01:07 trazodone 50 mg tablet 2022 023 [email or web address] 5 [facility] [address], [address] [place] [address], [id number], 3 20:25:25 Patient TargetsNo targets recorded. Patient Instructions Encounter Date Encounter Id Patient Instructions Last Modified By Organization Details Last Modified Time 10/24/2023 [id number] (ERNESTO) ankle brachial index* - Pt is losing insurance on 11/10, can this be scheduled as quick as possible? [email or web address] Not available 11/26/2023 11:48:04 Reason for Referral None Reported. Results Created Date Observation Date Name Description Value Unit Range Abnormal Flag Note LastModifiedBy Organization Detail LastModifiedTime 10/24/19 24 10/24/2023 CBC/C OMPLE TE BLD COUNT W/DIF F white blood cells 7.4 x10'3 /uL 4.2-10 .8 Not Available [facility] (Lab) [address] [place], [address], 10/24/2023 19:37:56 10/24/19 24 10/24/2023 CBC/C OMPLE TE BLD COUNT W/DIF F red blood cells 4.33 x10'6 /uL 3.80-5 .20 Not Available [facility] (Lab) [address] [place], [address], 10/24/2023 19:37:56 10/24/19 24 10/24/2023 CBC/C OMPLE TE BLD COUNT W/DIF F hemoglobin 13.2 g/dL 12.0-1 5.6 Not Available [facility] (Lab) [address] [place], [address], 10/24/2023 19:37:56 10/24/19 24 10/24/2023 CBC/C OMPLE TE BLD COUNT W/DIF F hematocrit 40.7 % 35.7-4 5.7 Not Available [facility] (Lab) [address] [place], [address], 10/24/2023 19:37:56 10/24/19 24 10/24/2023 CBC/C OMPLE TE BLD COUNT W/DIF F mean red cell volume 94.0 fL 82.0-9 9.0 Not Available [facility] (Lab) [address] [place], [address], 10/24/2023 19:37:56 10/24/19 24 10/24/2023 CBC/C OMPLE TE BLD COUNT W/DIF F mean red cell hemoglobin 30.5 pg 27.0-3 3.0 Not Available [facility] (Lab) [address] [place], [address], 10/24/2023 19:37:56 10/24/19 24 10/24/2023 CBC/C OMPLE TE BLD COUNT W/DIF F mean RBC HGB concentratio n 32.4 g/dL 31.0-3 6.0 Not Available [facility] (Lab) [address] [place], [address], 10/24/2023 19:37:56 10/24/19 24 10/24/2023 CBC/C OMPLE TE BLD COUNT W/DIF F red cell distribution width 13.0 % 11.8-1 5.5 Not Available [facility] (Lab) [address] [place], [address], 10/24/2023 19:37:56 10/24/19 24 10/24/2023 CBC/C OMPLE TE BLD COUNT W/DIF F platelets 272 x10'3 /uL 150-40 0 Not Available [facility] (Lab) [address] [place], [address], 10/24/2023 19:37:56 10/24/19 24 10/24/2023 CBC/C OMPLE TE BLD COUNT W/DIF F mean platelet volume 10.8 fL 9.0-12 .4 Not Available [facility] (Lab) [address] [place], [address], 10/24/2023 19:37:56 10/24/19 24 10/24/2023 CBC/C OMPLE TE BLD COUNT W/DIF F neutrophils 59.6 % 39.0-7 2.0 Not Available [facility] (Lab) [address] [place], [address], 10/24/2023 19:37:56 10/24/19 24 10/24/2023 CBC/C OMPLE TE BLD COUNT W/DIF F lymphocytes 33.6 % 16.0-4 7.0 Not Available [facility] (Lab) [address] [place], [address], 10/24/2023 19:37:56 10/24/19 24 10/24/2023 CBC/C OMPLE TE BLD COUNT W/DIF F monocytes 3.8 % 5.0-12 .0 low Not Available [facility] (Lab) [address] [place], [address], 10/24/2023 19:37:56 10/24/19 24 10/24/2023 CBC/C OMPLE TE BLD COUNT W/DIF F eosinophils 2.0 % 1.0-7. 0 Not Available [facility] (Lab) [address] [place], [address], 10/24/2023 19:37:56 10/24/19 24 10/24/2023 CBC/C OMPLE TE BLD COUNT W/DIF F basophils 0.7 % 0.0-2. 0 Not Available [facility] (Lab) [address] [place], [address], 10/24/2023 19:37:56 10/24/19 24 10/24/2023 CBC/C OMPLE TE BLD COUNT W/DIF F immature granulocytes 0.3 % 0.00-0 .50 Not Available [facility] (Lab) [address] [place], [address], 10/24/2023 19:37:56 10/24/19 24 10/24/2023 CBC/C OMPLE TE BLD COUNT W/DIF F neutrophils, absolute count 4.39 x10'3 /uL 1.5-8. 0 Not Available [facility] (Lab) [address] [place], [address], 10/24/2023 19:37:56 10/24/19 24 10/24/2023 CBC/C OMPLE TE BLD COUNT W/DIF F lymphocytes, absolute count 2.47 x10'3 /uL 1.07-3 .43 Not Available [facility] (Lab) [address] [place], [address], 10/24/2023 19:37:56 10/24/19 24 10/24/2023 CBC/C OMPLE TE BLD COUNT W/DIF F monocytes, absolute count 0.28 x10'3 /uL 0.29-0 .99 low Not Available [facility] (Lab) [address] [place], [address], 10/24/2023 19:37:56 10/24/19 24 10/24/2023 CBC/C OMPLE TE BLD COUNT W/DIF F eosinophils, absolute count 0.15 x10'3 /uL 0.02-0 .53 Not Available [facility] (Lab) [address] [place], [address], 10/24/2023 19:37:56 10/24/19 24 10/24/2023 CBC/C OMPLE TE BLD COUNT W/DIF F basophils, absolute count 0.05 x10'3 /uL 0.01-0 .08 Not Available [facility] (Lab) [address] [place], [address], 10/24/2023 19:37:56 10/24/19 24 10/24/2023 CBC/C OMPLE TE BLD COUNT W/DIF F immature granulocytes ,absolute 0.02 x10'3 /uL 0.00-0 .05 Not Available [facility] (Lab) [address] [place], [address], 10/24/2023 19:37:56 10/24/19 24 10/24/2023 CBC/C OMPLE TE BLD COUNT W/DIF F nucleated red blood cells 0.0 % -0 Not Available [facility] (Lab) [address] [place], [address], 10/24/2023 19:37:56 10/24/19 24 10/24/2023 CBC/C OMPLE TE BLD COUNT W/DIF F NRBC# 0.00 x10'3 /uL Not Available [facility] (Lab) [address] [place], [address], 10/24/2023 19:37:56 10/24/19 24 10/24/2023 BASIC METAB OLIC PANEL sodium 140 mmol/ L 137-14 5 Not Available [facility] (Lab) [address] [place], [address], 10/24/2023 19:50:56 10/24/19 24 10/24/2023 BASIC METAB OLIC PANEL potassium 3.8 mmol/ L 3.5-5. 1 Not Available [facility] (Lab) [address] [place], [address], 10/24/2023 19:50:56 10/24/19 24 10/24/2023 BASIC METAB OLIC PANEL chloride 106 mmol/ L 98-107 Not Available [facility] (Lab) [address] [place], [address], 10/24/2023 19:50:56 10/24/19 24 10/24/2023 BASIC METAB OLIC PANEL carbon dioxide 26 mmol/ L 22-30 Not Available [facility] (Lab) [address] [place], [address], 10/24/2023 19:50:56 10/24/19 24 10/24/2023 BASIC METAB OLIC PANEL anion gap 11.8 mmol/ L 14-22 low Not Available [facility] (Lab) [address] [place], [address], 10/24/2023 19:50:56 10/24/19 24 10/24/2023 BASIC METAB OLIC PANEL glucose 118 mg/dL 70-99 high Not Available [facility] (Lab) [address] [place], [address], 10/24/2023 19:50:56 10/24/19 24 10/24/2023 BASIC METAB OLIC PANEL BUN 14 mg/dL 8-19 Not Available [facility] (Lab) [address] [place], [address], 10/24/2023 19:50:56 02/2110/24/2023 BASIC METAB OLIC PANEL creatinine 0.90 mg/dL 0.66-1 .25 Not Available [facility] (Lab) [address] [place], [address], 10/24/2023 19:50:56 10/24/19 24 10/24/2023 BASIC METAB OLIC PANEL GFR >60 Refer ence Range : [place] ge GFR Healt hy Adult : >60 mL/mi n/1.7 3 m2 Chron ic Kidne y Disea se: 15-60 mL/mi n/1.7 3 m2 Kidne y Failu re: <15/m L/min /1.73 m2 www.n iddk. nih.g ov The MDRD study equat ion has not been valid ated in child juwan <18 years of age; pregn ant women ; the elder ly >85 years of age; or in some racia l or ethni c subgr oups, such as Hisct nics. Outsi de the valid ated cirilo eters , estim ated GFR is less accur ate, requi ring clini natalya judgm ent on a case- by-ca se basis . Clini natalya inter preta tion for other races and ages must be made by the clini marcy. The MDRD study equat ion has not been valid ated for the evalu ation of serum creat inine relat ed to nutri lydia l statu s or medic ation usage . For perso ns <18 years of age, a pedia tric GFR calcu lator is avail able on the [facility] websi te: https ://suzanne w.izaiah chaudhry.o rg/pr ofess ional s/kdo qi/gf r_cal culat or Not Available [facility] (Lab) [address] [place], [address], 10/24/2023 19:50:56 10/24/1910/24/2023 BASIC METAB OLIC PANEL calcium 8.9 mg/dL 8.4-10 .2 Not Available [facility] (Lab) [address] [place], [address], 10/24/2023 19:50:56 10/24/19 24 10/24/2023 LIPID PANEL cholesterol 152 mg/dL 140-19 9 NIH ARVIND NSUS RECOM MENDA TION FOR MASSIMO STERO L: ADULT CHILD LOW RISK: <200 <170 BORDE RLINE : <200- 239 ----- HIGH RISK: >240 >200 Not Available [facility] (Lab) [address] [place], [address], 10/24/2023 19:50:58 10/24/19 24 10/24/2023 LIPID PANEL triglyceride s 147 mg/dL 0-150 NIH ARVIND NSUS REPOR T RECOM MENDA TION FOR TRIGL YCERI MAKENZIE: ADULT CHILD LOW RISK: <150 ----- BODER LINE: 150-1 99 ----- HIGH RISK: >200 ----- Not Available [facility] (Lab) [address] [place], [address], 10/24/2023 19:50:58 10/24/19 24 10/24/2023 LIPID PANEL HDL cholesterol 42 mg/dL 40- Not Available [facility] (Lab) [address] [place], [address], 10/24/2023 19:50:58 10/24/19 24 10/24/2023 LIPID PANEL LDL cholesterol, calculated 81 mg/dL 0-130 NIH ARVIND NSUS REPOR T RECOM MENDA TIONS FOR LDL: ADULT CHILD LOW RISK <130 <110 (OPTI MAL LDL) <100 ----- BORDE RLINE : 130-1 59 ----- HIGH RISK: >160 >130 A TRIGL YCERI DE RESUL T >400 INVAL IDATE S THE CALCU LATIO N FOR LDL FRACT IONAT ION - THE LDL RESUL T WILL NOT BE REPOR OZZIE. Not Available [facility] (Lab) [address] [place], [address], 10/24/2023 19:50:58 10/24/19 24 10/24/2023 HEPAT IC/LI MELI PANEL alkaline phosphatase 116 U/L 38-126 Not Available [facility] (Lab) [address] [place], [address], 10/24/2023 19:51:01 10/24/19 24 10/24/2023 HEPAT IC/LI MELI PANEL alanine aminotransfe rase 21 U/L 0-35 Not Available [facility] (Lab) [address] [place], [address], 10/24/2023 19:51:01 10/24/19 24 10/24/2023 HEPAT IC/LI MELI PANEL aspartate aminotransfe rase 23 U/L 15-37 Not Available [facility] (Lab) [address] [place], [address], 10/24/2023 19:51:01 10/24/19 24 10/24/2023 HEPAT IC/LI MELI PANEL bilirubin, total 0.30 mg/dL 0.20-1 .30 Not Available [facility] (Lab) [address] [place], [address], 10/24/2023 19:51:01 10/24/19 24 10/24/2023 HEPAT IC/LI MELI PANEL bilirubin, conjugated (direct) 0.00 mg/dL 0.00-0 .30 Not Available [facility] (Lab) [address] [place], [address], 10/24/2023 19:51:01 10/24/19 24 10/24/2023 HEPAT IC/LI MELI PANEL biliurubin,u ncong. (indirect) 0.00 mg/dL 0.00-1 .1 Not Available [facility] (Lab) [address] [place], [address], 10/24/2023 19:51:01 10/24/19 24 10/24/2023 HEPAT IC/LI MELI PANEL total protein 7.0 g/dL 6.3-8. 2 Not Available [facility] (Lab) [address] [place], [address], 10/24/2023 19:51:01 10/24/19 24 10/24/2023 HEPAT IC/LI MELI PANEL albumin 3.7 g/dL 3.0-4. 4 Not Available [facility] (Lab) [address] [place], [address], 10/24/2023 19:51:01 10/24/19 24 10/24/2023 HEPAT IC/LI MELI PANEL globulin 3.3 g/dL 2.6-4. 2 Not Available [facility] (Lab) [address] [place], [address], 10/24/2023 19:51:01 10/24/19 24 10/24/2023 HEPAT IC/LI MELI PANEL A/G ratio 1.1 ratio 1.0-2. 0 Not Available [facility] (Lab) [address] [place], [address], 10/24/2023 19:51:01 10/24/19 24 10/24/2023 TSH thyroid-stim ulating hormone 2.120 uIU/m L 0.465- 4.680 Not Available [facility] (Lab) [address] [place], [address], 10/24/2023 20:17:48 10/24/19 24 10/24/2023 HEMOG LOBIN A1C HA1C 5.7 % 4.0-6. 0 Diabe hector Scree smith Crite venkat: <5.7% Consi stent with absen ce of diabe hector 5.7-6 .4% Consi stent with incre ased risk for diabe hector (pred iabet es) >OR=6 .5% Consi stent with diabe hector REFER ENCE: Diabe hector Care 2016, 39(Chiu ppl.1 ):s13 -s22 Not Available [facility] (Lab) [address] [place], [address], 10/24/2023 21:04:32 10/24/19 24 10/25/2023 VITAM IN D 25-HY DROXY vd25oh 44.0 NG/mL 30-100 Vitam in D Statu s: Defic ient: <20 ng/mL Insuf ficie nt: 20-29 ng/mL Suffi cient : 30-10 0 ng/mL Not Available [facility] (Lab) [address] [place], [address], 10/25/2023 12:33:41 10/24/19 24 10/25/2023 VITAM IN B12 (ALEXEI SARA ) vb12 329 pg/mL 239-93 1 Not Available [facility] (Lab) [address] [place], [address], 10/25/2023 13:47:56 10/24/19 24 10/25/2023 FOLAT E, SERUM /PLAS MA folate 3.83 NG/mL 2.76-2 0.0 Not Available [facility] (Lab) [address] [place], [address], 10/25/2023 13:48:01 03/08/20 23 03/08/2023 MRI, abdom en + pelvi s, w/wo contr ast No observ ation record ed. [email or web address] [facility] [address] [place], [address], 03/12/2023 12:35:53 07/11/20 23 07/11/2023 XR, knee No observ ation record ed. [email or web address] [facility] [address] [facility] [address], [address], 07/16/2023 18:11:14 07/11/20 23 07/11/2023 CT, chest , w/o contr ast No observ ation record ed. [email or web address] [facility] [address] [facility] [address], [place], [address], 07/16/2023 18:12:23 11/1107/14/2023 XR, chest No observ ation record ed. [email or web address] [facility] [address], [place], [address], 07/16/2023 18:12:39 12/18/19 24 12/18/2023 (ERNESTO) ankle brach ial index * No observ ation record ed. [email or web address] [facility] [address], [place], [address], 01/22/2024 16:27:06 Result Notes None recorded. Problems Name Problem SNOMED Code Status Onset Date Resolution Date Notes Provider Name and Address Organization Details Recorded Time Pain of bilateral hip joints 9314509974203 9100 Active 2021 Not Available [facility] 3 05:38:21 Bilateral shoulder joint pain 9111779905989 9104 Active 2021 Not Available [facility] 3 05:38:21 Pain of right shoulder joint 5468513237052 9100 Active 2021 Not Available [facility] 3 05:38:21 Anxiety disorder 947441314 Active Not Available [facility] 3 05:38:21 Plantar fasciitis 796823682 Active 2018 Not Available [facility] 3 05:38:22 Gastroesop hageal reflux disease 477759115 Active Not Available [facility] 3 05:38:22 Pure hyperchole sterolemia 690957499 Active Not Available [facility] 3 05:38:22 Impingemen t syndrome of left shoulder region 0592601016625 04 Active 2021 Not Available [facility] 3 05:38:22 Restless legs 88832685 Active Not Available [facility] 3 05:38:22 Vitamin D deficiency 88260386 Active 2018 Not Available [facility] 3 05:38:22 Depressive disorder 23286963 Active Not Available [facility] 3 05:38:22 Migraine 84431001 Active Not Available [facility] 3 05:38:22 Dysphagia 79403774 Active Not Available [facility] 3 05:38:22 History of polyp of colon 489523269 Active Not Available [facility] 3 05:38:22 Cervical radiculopa thy 10389088 Active Not Available [facility] 3 05:38:22 Hyperlipid emia 57249764 Active Not Available [facility] 3 05:38:22 Essential hypertensi on 92257840 Active Not Available [facility] 3 05:38:22 Prediabete s 946280459 Active 2021 Not Available [facility] 3 05:38:22 Obstructiv e sleep apnea syndrome 29862281 Active 2021 2 Not Available [facility] 3 05:38:22 Epigastric pain 18165979 Active Not Available [facility] 3 05:38:22 Abdominal pain 86484832 Active 2022 Not Available [facility] 3 05:38:22 Cyst of left ovary 5074092112602 9108 Active 2022 Not Available [facility] 3 05:38:21 Pelvic mass 53709756 Active 2022 Not Available [facility] 3 05:38:22 Angular cheilitis 703618084 Active 2022 Not Available [facility] 3 05:38:22 Feeling irritable 59244154 Active 2022 RODGER Johnson [address], [place], [address] , [employer] [facility] [employer] 3 13:01:41 Insomnia 516129030 Active 2022 RODGER Johnson [address], [place], [address] , [employer] [facility] [employer] 3 13:03:49 Rib pain 303251661 Active 2022 Cindi Vicente MD [address], [place], [address] , [place] [facility] [employer] 3 17:59:46 Cough 10431464 Active 2022 Cindi Vicente MD [address] [facility], [place] [address], [place], [address] , [facility] [employer] [facility] 3 18:00:04 Neuropathy 503386502 Active 2023 Cindi Vicente MD [address] [facility], [place] [place] [address], [place], [address] , [facility] [employer] [facility] 4 10:51:00 Peripheral vascular disease 104941979 Active 2023 Cindi Vicente MD [address] [facility], [place] [place] [address], [place], [address] , [facility] [employer] [facility] 4 10:51:07 Notes:Medical History: Anxie ty/Depression Migraine headaches Rhinitis Obesity with mild OSAHS, AHI = 8, 11/14/21, on CPAP c/o IVRC Hypertension Hyperlipidemia BANDAR PLMD Vit D deficiency Plantar fasciitis Some problems listed in Documents: #[id number], #[id number] could not be added to this patient's chart. Please review these documents and add these problems to the patient's chart manually as needed. Problem Notes None recorded. Procedures Surgical History Date Name Laterality Status Provider Name and Address Organization Details Recorded Time 09/03/19 14 colonoscopy completed Not Available [facility] 11/02/19 23 02:32:22 tonsilectomy/ad enoids completed Not Available [facility] 11/01/2022 02:32:22 Knee arthroscopy/toshia ifeanyi completed Not Available [facility] 11/01/2022 02:32:22 arthroscopy of shoulder completed Not Available [facility] 11/01/2022 02:32:22 Hysterectomy, Partial completed Not Available [facility] 11/01/2022 02:32:22 Imaging Results None recorded. Procedure Notes None recorded. Medical Equipment None Reported. Allergies Allergen ID Allergen Name Allergen Category Reaction Reaction Severity Criticality Documentation Date Start Date Code Code System Note Provider Name and Address Organization Details Recorded Time 3826 Levaquin medicatio n Not available Not available Not available 11/01/2022 53124 2 RxNorm IV Not Available [facility] 3 02:49:09 Medications Name Sig Start Date Stop Date Status Note LastModified by Organization Details LastModified Time Pravachol 40 mg tablet Two hs for choleste rol active Not Available Not Available No t Available cyclobenz aprine 10 mg tablet TAKE 1 TABLET BY MOUTH EVERY 8 HOURS NEEDED active Not Available Not Available No t Available amoxicill in 500 mg capsule Take 1 capsule 3 times a day by oral route for 10 days. 12/03 completed Not Available Not Available Not Available atorvasta tin 40 mg tablet active Not Available Not Available Not Available nystatin 100,000 unit/mL oral suspensio n Take 10 mL 4 times a day by oral route for 7 days. 04/23 completed Not Available Not Available Not Available prednison e 10 mg tablet TAKE 4 TABLETS BY MOUTH ONCE DAILY FOR 1 DAY AND THEN 3 ONCE DAILY FOR 3 DAYS AND THEN 2 ONCE DAILY FOR 3 DAYS AND THEN 1 ONCE DAILY FOR 3 D active Not Available Not Available No t Available atorvasta tin 20 mg tablet Take 1 tablet every day by oral route. 05/27 completed Not Available Not Available Not Available citalopra m 40 mg tablet TAKE 1 TABLET BY MOUTH ONCE DAILY 03/22 completed Not Available Not Available Not Available trazodone 50 mg tablet Take 1 tablet(s ) every day by oral route for 90 days. active Not Available Not Available No t Available Topamax 25 mg tablet Take 1 tablet every day by oral route. 12/03 completed Not Available Not Available Not Available azithromy justa 250 mg tablet 2 po qday x 1 day then 1 po qday x 4 days active Not Available Not Available No t Available benzonata te 200 mg capsule TAKE 1 CAPSULE BY MOUTH THREE TIMES DAILY NEEDED FOR COUGH 01/15 completed Not Available Not Available Not Available cimetidin e 400 mg tablet TAKE 1 TABLET BY MOUTH TWICE DAILY active Not Available Not Available No t Available carbidopa 25 mg-levodo pa 250 mg tablet TAKE 1 TABLET BY MOUTH ONCE DAILY 03/13 completed Not Available Not Available Not Available valacyclo vir 1 gram tablet TAKE 2 TABLETS BY MOUTH EVERY 12 HOURS FOR 1 DAY 07/24 completed Not Available Not Available Not Available hydrocodo ne 5 mg-acetam inophen 325 mg tablet Take 1 tablet every 6 hours by oral route as needed for 4 days. active Not Available Not Available No t Available meloxicam 15 mg tablet Take 1 tablet every day by oral route. active Not Available Not Available No t Available sucralfat e 1 gram tablet TAKE 1 TABLET BY MOUTH 4 TIMES DAILY 30 MINUTES PRIOR TO MEALS active Not Available Not Available No t Available prednison e 20 mg tablet 3 po qday x 3 days then 2 po qday x 3 days then 1 po qday x 3 days then 1/2 po qday x 3 days then stop active Not Available Not Available No t Available metoprolo l succinate ER 100 mg tablet,ex tended release 24 hr Take 1 tablet by mouth once daily active Not Available Not Available No t Available prednison e 5 mg tablet TAKE 2 TABLETS BY MOUTH ONCE DAILY IN THE MORNING FOR 4 DAYS AND THEN 1 ONCE DAILY IN THE MORNING FOR 3 DAYS 01/24 completed Not Available Not Available Not Available Zantac 300 mg tablet Take 1 tablet every day by oral route. 06/03 completed Not Available Not Available Not Available venlafaxi ne ER 150 mg capsule,e xtended release 24 hr Take 1 capsule by mouth once daily 01/24 completed Not Available Not Available Not Available phentermi ne 37.5 mg tablet Take 1 tablet by mouth once daily active Not Available Not Available No t Available acetamino phen 300 mg-codein e 30 mg tablet TAKE 1 TABLET BY MOUTH EVERY 6 HOURS NEEDED active Not Available Not Available No t Available sulfameth oxazole 800 mg-trimet hoprim 160 mg tablet Take 1 tablet every 12 hours by oral route for 7 days. 03/02 completed Not Available Not Available Not Available hydrocodo ne 10 mg-acetam inophen 325 mg tablet 1 TABLET BY MOUTH EVERY 6 HOURS NEEDED FOR PAIN active Not Available Not Available No t Available omeprazol e 40 mg capsule,d elayed release active Not Available Not Available Not Available aspirin 81 mg tablet,de layed release Take 1 tablet every day by oral route. 09/21 completed Not Available Not Available Not Available triamcino lone acetonide 0.1 % topical cream APPLY CREAM EXTERNAL LY TO AFFECTED AREA TWICE DAILY FOR 7 DAYS NEEDED active Not Available Not Available No t Available amoxicill in 875 mg tablet Take 1 tablet every 12 hours by oral route for 7 days. active Not Available Not Available No t Available pravastat in 80 mg tablet TAKE 1 TABLET BY MOUTH EVERY DAY 03/13 completed Not Available Not Available Not Available oxycodone -acetamin ophen 10 mg-325 mg tablet Take 1 tablet every 6 hours by oral route for 3 days. active Not Available Not Available No t Available Kenalog 10 mg/mL suspensio n for injection In office injectio n administ ered by the provider 04/26 completed [facility]: [id number] 4-20 Not Available Not Available Not Available meclizine 25 mg tablet Take 1 tablet 3 times a day by oral route as needed. active Not Available Not Available No t Available cephalexi n 500 mg capsule TAKE 1 CAPSULE BY MOUTH TWICE DAILY FOR 7 DAYS 06/27 completed Not Available Not Available Not Available pantopraz ole 40 mg tablet,de layed release TAKE 1 TABLET BY MOUTH TWICE DAILY active Not Available Not Available No t Available esomepraz ole magnesium 40 mg capsule,d elayed release Take 1 capsule every day by oral route. 04/24 completed [facility] will not cover Not Available Not Available Not Available triamcino lone acetonide 0.1 % topical ointment APPLY A THIN LAYER TO THE AFFECTED AREA(S) TOPICALL Y TWICE DAILY 11/15 completed Not Available Not Available Not Available nystatin 100,000 unit/gram topical cream APPLY CREAM TOPICALL Y TO AFFECTED AREA TWICE DAILY active Not Available Not Available No t Available buspirone 10 mg tablet active Not Available Not Available Not Available lidocaine 5 % topical patch active Not Available Not Available Not Available docusate sodium 100 mg capsule TAKE 1 CAPSULE BY MOUTH ONCE DAILY active Not Available Not Available No t Available gabapenti n 300 mg capsule 1 po bid active Not Available Not Available Not Available omeprazol e 20 mg capsule,d elayed release once daily 12/25 completed Not Available Not Available Not Available cephalexi n 500 mg tablet Take 1 tablet twice a day by oral route for 7 days. 06/27 completed Not Available Not Available Not Available monteluka st 10 mg tablet Take 1 tablet every day by oral route. active Not Available Not Available No t Available hydroxyzi ne HCl 25 mg tablet active Not Available Not Available No t Available codeine 10 mg-guaife nesin 100 mg/5 mL oral liquid Take 10 mL every 4 hours by oral route as needed. active Not Available Not Available No t Available zolpidem 5 mg tablet Take 1 tablet every day by oral route. active Not Available Not Available No t Available ergocalci ferol (vitamin D2) 1,250 mcg (50,000 unit) capsule active Not Available Not Available Not Available azelastin e 137 mcg (0.1 %) nasal spray USE 2 SPRAY(S) IN EACH NOSTRIL TWICE DAILY active Not Available Not Available No t Available ibuprofen 600 mg tablet TAKE 1 TABLET BY MOUTH EVERY 6 HOURS NEEDED WITH FOOD active Not Available Not Available No t Available methylpre dnisolone 4 mg tablets in a dose pack USE DIRECTED 11/06 completed Not Available Not Available Not Available albuterol sulfate HFA 90 mcg/actua tion aerosol inhaler INHALE 2 PUFFS BY MOUTH EVERY 4 HOURS NEEDED active Not Available Not Available No t Available cefdinir 300 mg capsule Take 1 capsule every 12 hours by oral route for 10 days. active Not Available Not Available No t Available fluticaso ne propionat e 50 mcg/actua tion nasal spray,татьяна pension USE 2 SPRAY(S) IN EACH NOSTRIL ONCE DAILY active Not Available Not Available No t Available clotrimaz ole 1 % topical cream APPLY TO THE AFFECTED AND SURROUND ING AREAS OF SKIN TWICE DAILY IN THE MORNING AND EVENING X7 DAYS NEEDED FOR RASH active Not Available Not Available No t Available doxycycli ne hyclate 100 mg tablet Take 1 tablet by mouth twice daily for 10 days 10/24 completed Not Available Not Available Not Available esomepraz ole magnesium 20 mg capsule,d elayed release Take 1 capsule every day by oral route. 05/27 completed Not Available Not Available Not Available escitalop grecia 20 mg tablet active Not Available Not Available Not Available cyclobenz aprine 5 mg tablet Take 1 tablet 3 times a day by oral route. active Not Available Not Available No t Available bupropion HCl XL 300 mg 24 hr tablet, extended release Take 1 tablet every day by oral route. active Not Available Not Available No t Available bupropion HCl XL 150 mg 24 hr tablet, extended release TAKE 1 TABLET BY MOUTH ONCE DAILY 02/16 completed Not Available Not Available Not Available Boostrix Tdap 2.5 Lf unit-8 mcg-5 Lf/0.5 mL intramusc ular syringe TO BE ADMINIST ERED BY PHARMACI ST FOR IMMUNIZA TION 09/21 completed Not Available Not Available Not Available metoprolo l succinate 02/16 completed Not Available Not Available Not Available BuSpar 02/16 completed Not Available Not Available Not Available Wellbutri n SR 09/13 completed Not Available Not Available Not Available Nexium 03/02 completed Not Available Not Available Not Available omeprazol e 40 mg-sodium bicarbona te 1.1 gram capsule 02/16 completed Not Available Not Available Not Available lidocaine (PF) 10 mg/mL (1 %) injection solution In office injectio n administ ered by the provider 02/27 completed [facility]: [id number] 02-17 Not Available Not Available Not Available ropivacai ne (PF) 5 mg/mL (0.5 %) injection solution Take 16 mg by injectio n route. 04/26 completed Not Available Not Available Not Available naloxone 4 mg/actuat ion nasal spray CALL 911. ADMINIST ER A SINGLE SPRAY INTRANAS ALLY INTO ONE NOSTRIL UPON SIGNS OF OPIOID OVERDOSE . MAY REPEAT AFTER 3 MINUTES IF NO RESPONSE . active Not Available Not Available No t Available Nexium 24HR 20 mg tablet,de layed release Take 1 tablet every day by oral route. 05/27 completed Not Available Not Available Not Available Vitals Date Recorded Body height Body mass index (BMI) Body weight Body temperature Heart rate Oxygen saturation Oxygen saturation in Arterial blood by Pulse oximetry Systolic And Diastolic Provider Name and Address Organization Details Last Updated DateTime 4 157.48 cm 39 kg/m2 39514.1 7 g 97.1 [degF] 66 /min 97 % 97 % 130/80 mm[Hg] Shana Sewell RN [place] [employer] [facility] 4 10:36:50 Date Recorded Body height Body mass index (BMI) Body weight Body temperature Heart rate Oxygen saturation Oxygen saturation in Arterial blood by Pulse oximetry Systolic And Diastolic Provider Name and Address Organization Details Last Updated DateTime 4 157.48 cm 38.8 kg/m2 74950.5 8 g 97.3 [degF] 68 /min 97 % 97 % 132/78 mm[Hg] Shana Sewell RN [facility] [employer] [facility] 4 14:02:59 Date Recorded Body height Body mass index (BMI) Body weight Body temperature Heart rate Oxygen saturation Oxygen saturation in Arterial blood by Pulse oximetry Systolic And Diastolic Provider Name and Address Organization Details Last Updated DateTime 3 157.48 cm 39.7 kg/m2 67676.5 4 g 96.8 [degF] 64 /min 95 % 95 % 124/80 mm[Hg] Yanna Juarez RN [facility] [employer] [facility] 3 12:40:41 Date Recorded Body height Body mass index (BMI) Body weight Body temperature Heart rate Oxygen saturation Oxygen saturation in Arterial blood by Pulse oximetry Systolic And Diastolic Provider Name and Address Organization Details Last Updated DateTime 3 157.48 cm 39.1 kg/m2 46025.7 7 g 96.1 [degF] 56 /min 97 % 97 % 118/76 mm[Hg] Yanna Juarez RN [facility] [employer] [facility] 3 15:19:35 Date Recorded Body height Body mass index (BMI) Body weight Body temperature Heart rate Oxygen saturation Oxygen saturation in Arterial blood by Pulse oximetry Systolic And Diastolic Provider Name and Address Organization Details Last Updated DateTime 3 157.48 cm 39.3 kg/m2 36324.3 6 g 97.3 [degF] 62 /min 96 % 96 % 124/80 mm[Hg] Shana Sewell RN [facility] [employer] [facility] 3 11:37:58 Social History Question Answer Notes LastModified by Organizat ion Details LastModified Time Tobacco Smoking Status Never Smoker Roxie alvarez [place] [employer] [facility] [employer] 10/24/2023 10:31:27 What Is Your Level Of Caffeine Consumption? Moderate [id number] Information not available 11/01/2022 How Much Tobacco Do You Chew? None [id number] Information not available 11/01/2022 In The 14 Days Before Symptom Onset, Have You Had Close Contact With A Laboratory-confirm ed COVID-19 While That Case Was Ill? No [email or web address] Information n ot available 10/24/2023 In The 14 Days Before Symptom Onset, Have You Had Close Contact With A Person Who Is Under Investigation For COVID-19 While That Person Was Ill? No [email or web address] Information not available 10/24/2023 What Type Of Diet Are You Following? REGULAR [id number] Information not available 11/01/2022 Which Illicit Or Recreational Drugs Have You Used? No [email or web address] Information not available 10/24/2023 Do You Use Your Seat Belt Or Car Seat Routinely? Yes [email or web address] Information not available 10/24/2023 How Much Tobacco Do You Smoke? No [id number] Information not available 11/01/2022 Do You Participate In Social Media? No [email or web address] Information not available 10/24/2023 Sex: Unknown Functional Status Question Answer Note LastModified by Organizat ion Details LastModified Time Do you use any illicit or recreational drugs? No Information not available 10/24/2023 What is your level of alcohol consumption? None [id number] Information not available 11/01/2022 Do you or have you ever used smokeless tobacco? Never used smokeless tobacco [id number] Information not available 11/01/2022 What is your occupation? retired [email or web address] Information not available 10/24/2023 Do you or have you ever used e-cigarettes or vape? Never used electronic cigarettes Information not available 10/24/2023 What is your exercise level? None [id number] Information not available 11/01/2022 Mental Status Question Answer Note LastModified by Organization D etails LastModified Time Do you feel stressed (tense, restless, nervous, or anxious, or unable to sleep at night)? [id number] Information not available 10/24/2023 Family History Relationship Description Onset Age of this Age Resolved Age Notes LastModified by Organization Details LastModified Time Brother Cerebrovascu lar accident [email or web address] Not available 10:31:25 Father Heart disease [id number] Not available 11/01/2022 02:32:27 Mother Heart disease [id number] Not available 11/01/2022 02:32:27 Notes:Paternal side of famil y has strong h/o heart disease Medical History Condition Response HIGH CHOLESTEROL / HYPERLIPIDEMIA Y DEPRESSION (INCLUDING POST ) Y GERD/NAUSEA Y URINARY/BLADDER/KIDNEY PROBLEMS Y USE OF NSAIDS Y HEADACHES/MIGRAINES Y GI PROBLEMS Y HYPERTENSION Y ANXIETY DISORDER Y ATRIAL FIBRILLATION Y Gynecological History Statement/Question Response Menses Monthly N Breast Problems no Discharge no Obstetrics History GPAL:G 0 P 0 0 0 0 Past Encounters Encounter ID Performer Location Encounter Start Date Encounter Closed Date Diagnosis/Indication Diagnosis SNOMED-CT Code Diagnosis ICD10 Code Diagnosis Note [id number] Carl Cline MD [facility] [place] [address] [place] [address] 12/07/2020 00:00:00 12/07/2020 12:08:42 [id number] Cindi Vicente MD [facility] Primary Care [facility] [address] [facility] [address] [place] [address] 02/16/2021 00:00:00 02/17/2021 08:45:59 [id number] _ATHN_MIGR ATION_1 _ATHENA_M IGRATION_ DEFAULT_1 _1 , 03/02/2021 00:00:00 03/02/2021 12:00:09 [id number] Cindi Vicente MD [facility] Primary Care [facility] [address] [facility] [address] [place] [address] 03/22/2021 00:00:00 03/22/2021 11:52:37 [id number] Cindi Vicente MD [facility] Primary Care [facility] [address] [facility] [address] [place] [address] 06/27/2021 00:00:00 06/27/2021 11:23:02 [id number] Cindi Vicente MD [facility] [address] [place] [address] [address] [place] [address] 09/08/2021 00:00:00 09/08/2021 12:42:36 [id number] Cindi Vicente MD [facility] Primary Care [address] [place] [address] 10/19/2021 00:00:00 10/31/2021 08:47:24 [id number] Cindi Vicente MD [facility] Primary Care [place] [address] [place] [address] 11/16/2021 00:00:00 11/30/2021 07:44:13 [id number] Cindi Vicente MD [facility] Primary Care [place] [address] [place] [address] 01/16/2022 00:00:00 01/30/2022 21:47:42 [id number] Cindi Vicente MD [facility] Primary Care [place] [address] [place] [address] 01/24/2022 00:00:00 01/24/2022 13:07:19 [id number] Nguyễn Murphy MD [facility] Ortho [place] [address] [place] [address] 02/01/2022 00:00:00 02/01/2022 10:33:37 [id number] Cindi Vicente MD [facility] Primary Care [place] [address] [place] [address] 02/27/2022 00:00:00 02/27/2022 14:30:45 [id number] Cindi Vicente MD [facility] Primary Care [place] [address] [place] [address] 03/22/2022 00:00:00 03/27/2022 08:42:47 [id number] Carl Cline MD [facility] Orth[facility] [place] [address] [place] [address] 04/04/2022 00:00:00 04/04/2022 12:58:29 [id number] Cindi Vicente MD [facility] Primary Care [place] [address] [place] [address] 04/26/2022 00:00:00 05/03/2022 08:05:05 [id number] Carl Cline MD [facility] [place] [address] [place] [address] 05/16/2022 00:00:00 05/16/2022 12:30:05 [id number] Cindi Vicente MD [facility] Primary Care [facility] [address] [facility] [address] [place] [address] 07/17/2022 00:00:00 07/17/2022 14:23:56 [id number] Carl Cline MD [facility] [place] [address] [facility] [address] [place] [address] 07/18/2022 00:00:00 07/18/2022 12:52:58 [id number] Carl Cline MD [facility] [place] [address] [facility] [address] [place] [address] 08/08/2022 00:00:00 08/08/2022 13:17:25 [id number] Cindi Vicente MD [facility] Primary [address] [facility] [place] [address] 10/16/2022 00:00:00 10/16/2022 10:25:10 [id number] AMANDA Oshea [address] [facility] [place] [address] 11/06/2022 11:32:49 11/06/2022 14:00:53 Abdominal pain 59037511 R10.9 CT abdomen/pe lvis - no acute findings; 3.6cm left adnexal cystic mass, recommend aquatic habitat biologist referralER labs, UA all unremarkab le.She still has some complaints of pain along RUQ (this has been more of a chronic complaint) , exacerbate d with bending, most likley MSK in nature.She was given muscle relaxers at ER, will continue. Cyst of left ovary [id number] abdomen/pe lvis - no acute findings; 3.6cm left adnexal cystic mass, recommend aquatic habitat biologist referralWi ll have her evaluated by aquatic habitat biologist. [id number] Cindi Vicente MD [facility] Primary Care [facility] [address] [facility] [address] [place] [address] 01/15/2023 10:38:17 01/15/2023 11:19:49 Pelvic mass 37108572 R19.[address] abd/pelvis from 10/24/22, aquatic habitat biologist referral had been givenhas not heard from gynecology about appt, phone number given-she will call to make apptwill order pelvic us for further evaluation in meantime Angular cheilitis 271965 005 K13.0 [id number] RODGER Johnson [facility] Primary Care [facility] [address] [place] [address] 04/06/2023 12:35:13 04/06/2023 13:26:01 Feeling irritable 53715404 R45.4 Z73.3 F43.89 ChronicCar egiver role strainEnco uraged pt to pursue counseling .Trazodone for sleep may also help with anxiety and mood sx. Insomnia 493071233 G47.0 0 ChronicWor sened by family related stressorsW ill give trial of trazodone as it may help with sleep and stress/anx iety sx.Sleep hygiene (set bedtime, routine for bed, dark room, no electronic s). Discussed that it will likely take several weeks to fully establish routine and note change in sleep patterns. Advised good sleep habits and patterns to include:-- Setting a goal for at least 7 to 8 hours of sleep time per day.--Usin g the bed mainly for sleep and to go to bed only when tired. If unable to fall asleep after 30 minutes, patient should get out of bed but should not engage in any activity that requires sustained mental alertness. --Maintain ing a regular bedtime and wake-up time even on weekends or days off of work.--Raj iding excessive naps during the daytime. If a nap is necessary, limit it to no more than 30minutes. --Minimizi ng environmen juan noise, bright lights, and extremes in bedroom temperatur e.--Avoidi ng alcohol, caffeinate d beverages, and nicotine products for at least 6 hours prior to bedtime.-- Avoiding strenuous exercise and large meals for at least 4 hours prior to bedtime. [id number] Cindi Vicente MD [facility] Primary Care [facility] [address] [place] [address] 05/08/2023 15:09:01 05/08/2023 16:38:21 Insomnia 095436369 G47.00 ChronicWor sened by family related stressorsC ontinue with trazodone as it may help with sleep and stress/anx iety sx.Sleep hygiene (set bedtime, routine for bed, dark room, no electronic s). Discussed that it will likely take several weeks to fully establish routine and note change in sleep patterns. Feeling irritable 767997 07 R45.4 Z73.3 F43.89 ChronicCar egiver role strainEnco uraged pt to pursue counseling .Trazodone for sleep may also help with anxiety and mood sx.Continu e with escitalopr am and buspirone as prescribed . [id number] Cindi Vicente MD [facility] Primary Care [address] [place] [address] 07/24/2023 11:27:03 07/24/2023 12:03:07 Rib pain 057074306 R07.81 slowly improving, no fracture per CT and cxrcontinu e supportive care and use hydrocodon e/apap sparingly 5/325 mg, do not use before driving/wo rkingf/u prn [id number] Cindi Vicente MD [facility] Primary Care [address] [place] [address] 10/24/2023 10:31:04 10/24/2023 12:18:24 Neuropathy 503187890 G62.9 Peripheral vascular disease 084461335 I73.9 check ERNESTO to startif normal, likely neuropathy Prediabetes 528358129 R7 3.03 Vitamin D deficiency 347 93844 E55.9 Hyperlipidemia 57703987 E78.5 Renewal of prescription 795403886 Z76.0 [id number] Cindi Vicente MD [facility] Primary Care [address] [place] [address] 12/12/2023 13:57:06 12/12/2023 14:39:46 Neuropathy 019128864 G62.9 reviewed labsbegin gabapentin 300 mg po bidABI scheduled next weekwill consider PT for neck and low back to pursue MRI in the futuref/u by portal in 2 weeks Health Concerns Section Related Observation LastModified by Organization Detai ls LastModified Time None Recorded Concern Status LastModified by Organization Details LastModified Time None Recorded Advance Directives Directive None Recorded Payers Insurance Date Sequence Insurance Name Policy Number Policy Benavidez Covered Member ID Benavidez Member ID Guarantor Name 12/12/2023 1 [place] Zenobia Nickerson [id number] Zenobia Ncikerson 12/12/2023 1 [facility] - DOS ON OR AFTER 21 (MEDICAID REPLACEMENT - HMO) Zenobia Nickerson [id number] Zenobia Nickerson Notes Date Note Type Note Provider Name and Address Organization Details Recorded Time 04/06/2023 text/html 1. Pt in office for problem visit with c/o having irritability/stress . Worse with raising her grandkids for the past 9+ months, dealing with dcfs, her daughter, and . Pt states that she is not sleeping. Concerned about taking anything that her granddaughter may get hold of or that may make her too tired to function well. Maurisio Buckley, [employer] [address] [facility], [facility] [address], [place], [address], [facility] [employer] 04/06/2023 20:26:54 05/08/2023 text/html 05/08/23: 1. Pt in office for 4 week f/u appt. Pt states she is still struggling with irritability and stress. Sx are exacerbated by having her grandkids for the past 9-10 months. Pt states she hasn't been able to see psych yet for herself. States trazodone helps her sleep, but she isn't able to take it consistently with the kids in the house. Pt states she has no patience, no energy despite being on the escitalopram, buspirone, trazodone. States she feels like she is sleepy and isn't sure if it's due to the meds or stress and not sleeping well at night. 04/06/23: 1. Pt in office for problem visit with c/o having irritability/stress . Worse with raising her grandkids for the past 9+ months, dealing with dcfs, her daughter, and . Pt states that she is not sleeping. Concerned about taking anything that her granddaughter may get hold of or that may make her too tired to function well. RODGER Johnson [address], [place], [address], [employer] [facility] [employer] 05/08/2023 17:53:42 07/24/2023 text/html here to f/u on sleep and mood, both are hit and miss. For past 2 weeks she has been sleeping upstairs on the couch, recently had extensive cervical spinal surgery and is having a hard recovery. During her hospital stay she fell and hurt her knee and ribs. She has extensive bruise on left breast that is improving. Was seen in ER twice for pain on 07/11 and 07/14, she had CT chest on 07/11 and cxr and 07/14 which showed no fracture. Cindi Vicente MD [address], [place], [address], [employer] [facility] [employer] 07/24/2023 12:01:50 10/24/2023 text/html having pain in t oes b/l-strange feeling, not really numb. Pretty much constant, nothing makes it better or worse. Has been going on for some time. They can feel tingly. She does have low back pain. Never smoker. Cindi Vicente MD [address], [place], [address], [employer] [facility] [employer] 11/01/2023 15:57:20 12/12/2023 text/html having pain in t oes b/l-strange feeling, not really numb. Pretty much constant, nothing makes it better or worse. Has been going on for some time. They can feel tingly. She does have low back pain. Never smoker. update 12/12/23: No significant findings on labs. She continues to have pain in the low back with tingling in the toes, she has pain in her hands, radiating pain in her left upper thigh. Cindi Vicente MD [address], [place], [address], [employer] [facility] 01/20/2024 22:03:06 OBGyn Episode No OBEpisode recorded.
--- OUTSIDE RECORDS SUMMARY | 2025-03-09 14:11 | XMS_ITS | Clinical Summary ---
Author Organization [facility] Address [address] [place] [address] Care Team Providers Care Regulatory And Compliance Technician Name Role Phone Cindi Vicente MD Primary [...] Vaccine (Season Ended) [address] [place] [address] [facility] [place] [address] Care Teams Regulatory And Compliance Technician Relationship Specialty Start Date End Date Cindi Vicente MD [address] [place] [address] [place] [address] PCP - General Family Medicine 02/01/22
--- OUTSIDE RECORDS SUMMARY | 2025-03-09 14:11 | XMS_ITS | Clinical Summary ---
Author Organization [facility] Administrative Offices Address [address] [place] [address] Care Team Providers Care Global Account Manager Name Role Phone Unavailable Primary Care Provider Unavailabl e Allergies Active Allergy Reactions Criticality Noted Date Comments Levofloxacin Rash,Swelling High 11/15/2021 Levaquin Medications atorvastatin (LIPITOR) 40 mg tablet Active metoprolol succinate (TOPROL XL) 100 mg Extended Release 24 hour tablet Take 100 mg by mouth daily. 05/16/2022 Active escitalopram oxalate (LEXAPRO) 20 mg tablet Active pregabalin (LYRICA) 150 mg Capsule Take 1 Capsule by mouth 2 times daily. 12/29/2024 Active ergocalciferol, vitamin D2, (VITAMIN D2 ORAL) Take by mouth. Active omeprazole (PriLOSEC) 40 mg Capsule, Delayed Release(E.C.) Active busPIRone (BUSPAR) 10 mg tablet Active aspirin (VÍCTOR CHEWABLE) 81 mg Tablet, Chewable Take 81 mg by mouth daily. Active Active Problems No known active problems Encounters Date Type Department Care Team Description 03/03/2025 External Device Data [facility] ABSTRACTION Provider, Abstract 03/03/2025 External Device Data [facility] ABSTRACTION Provider, Abstract 03/03/2025 External Device Data [facility] ABSTRACTION Provider, Abstract 02/25/2025 Abstract [facility] [address] [place] [address] Wilian Vu MD 02/24/2025 4:00 PM CDT Office Visit [facility] [address] [place] [id number] Wilian Vu MD Plasma cell disorder (Primary Dx) from Last 3 Months Family History Medical History Relation Name Comments Diabetes Brother Heart Disease Brother No Known Problems Child 1 No Known Problems Child 2 Heart Disease Father Heart Disease Mother Breast Cancer Sister 1 Heart Disease Sister 1 Cancer - Other Sister 2 Relation Name Status Comments Brother Alive Child 1 Alive Child 2 Alive Father Mother Sister 1 Alive Sister 2 Alive Social History Tobacco Use Types Packs/Day Years Used Date Smoking Tobacco: Never Smokeless Tobacco: Never Comments Unknown Sex and Gender Information Value Date Recorded Sex Assigned at Not on file Legal Sex Female 5:47 AM GM Gender Identity Not on file Sexual Orientation Not on file Last Filed Vital Signs Vital Sign Reading Time Taken Comments Blood Pressure 127/79 02/24/2025 3:03 PM CDT Pulse 52 02/24/2025 3:03 PM CDT Temperature 36.3 C (97.3 F) 02/24/2025 3:03 PM CDT Respiratory Rate 15 02/24/2025 3:03 PM CDT Oxygen Saturation 96% 02/24/2025 3:03 PM CDT Inhaled Oxygen Concentration - - Weight 105.9 kg (233 lb 6.4 oz) 02/24/2025 3:03 PM CDT Height 157.5 cm (5' 2) 02/24/2025 3:03 PM CDT Body Mass Index 42.69 02/24/2025 3:03 PM CDT Plan of Treatment Upcoming Encounters Date Type Department Care Team (Late st Contact Info) Description 03/11/2025 4:30 PM CDT Telephone Check Up [facility] - [place] [address] [facility] [address] [place] [address] Wilian Vu MD [address] [facility] [address] [place] [address] Health Maintenance Due Date Last Done Comments Pre-Diabetes and Diabetes Screening 1960 DTAP/TDAP/TD VACCINES (1 - Tdap) 1977 BREAST CANCER SCREENING 1998 FIT-DNA Q 3 years 11/11/2003 FIT/FOBT Q 1 year 11/11/2003 Flex Sig/CT Colonography Q 5 years 11/11/2003 PNEUMOCOCCAL VACCINE 50+ YEARS (1 of 1 - PCV) 11/11/19 09 ZOSTER VACCINE (1 of 2) 2008 RSV VACCINE (60+ or ) (1 - Risk 60-74 years 1-dose series) 2018 COLORECTAL SCREENING 09/03/2023 09/03/2013 Colorectal Cancer Screening 09/03/2023 OSTEOPOROSIS SCREENING 11/11/2023 INFLUENZA VACCINE (#1) 2025 Insurance [facility]
[2025-03-09 14:47] LABS: Hematocrit 40.0 % (37.0-47.0); Hemoglobin 12.9 g/dL (12.0-15.0); Immature Granulocyte Percent A 0.2 % (0-0.5); Lymphocytes Absolute Auto 2.70 K/mm3 (0.9-3.2); Mean Corpuscular HGB Conc 32.3 g/dl (32-36); Mean Corpuscular Hemoglobin 29.9 pg (26-34); Mean Corpuscular Volume 92.8 fl (80-100); Nucleated Red Blood Cells Absolute Auto 0.000 K/mm3 (0.0-0.012); Nucleated Red Blood Cells Perc 0.0 % (0.0-0.2); Platelet Count Result 282 k/mm3 (150-375); Red Blood Count 4.31 M/mm3 (4.2-5.4); White Blood Count 6.0 K/mm3 (4.5-10.0)
[2025-03-09 14:59] LABS: Alanine Aminotransferase 22 U/L (6-35); Albumin Level 4.0 g/dL (3.5-5.1); Alkaline Phosphatase 89 U/L (38-126); Anion Gap 9 mmol/L (4-12); Aspartate Amino Transferase 24 U/L (14-36); Bilirubin,Total 0.3 mg/dL (0.2-1.3); Blood Urea Nitrogen 13 mg/dL (7-17); Calcium 9.3 mg/dL (8.4-10.2); Carbon Dioxide 27 mmol/L (22-30); Chloride 104 mmol/L (98-107); Estimated Glomerular Filt Rate 56; Glucose 100 mg/dL (65-110); Potassium 4.2 mmol/L (3.4-5.0); Sodium 140 mmol/L (137-145); Total Protein 7.8 g/dL (6.3-8.2)
[2025-03-11 03:39] LABS: Immunoglobulin A 67 mg/dL (70-320); Immunoglobulin G 2054 mg/dL (600-1540); Immunoglobulin M 39 mg/dL (50-300)
[2025-03-11 16:58] LABS: Albumin 3.5 g/dL (3.8-4.8); Gamma Globulin 1.7 g/dL (0.8-1.7)
== END 2025-03-09 14:05 | disposition home or self-care (01) ==
PROVIDERS: PCP Nurse Practitioner; Visit Provider Internal Medicine Hematology & Oncology
DX: D72.9 Disorder of white blood cells, unspecified (principal)
CPT/HCPCS: 36415; 77075; 80053; 82784; 84155; 84165; 85025